=== PATIENT | female | born 1940 ===

== ENCOUNTER 2017-02-11 13:17 | Inpatient (IN) | payer MEDICARE ==
[2017-02-11] MEDS ORDERED: Albuterol-Ipratrop 3 mg / 0.5 (3 ml) UD IH STA (14:10)
[2017-02-11] MEDS ORDERED: Oxycodone/Acetaminophen 5/325 mg Tab PO STA (14:16)
[2017-02-11] MEDS ORDERED: Oxycodone/Acetaminophen 5/325 mg Tab ONE (14:26)
--- NOTE | 2017-02-11 14:35 | RAD ---
HISTORY: SOB, marked congestion rt mid lung COMPARISON: Chest x-ray performed 02/23/15 TECHNIQUE: Chest PA and lateral FINDINGS: LUNGS: Mild pulmonary venous congestion. Small left pleural effusion. Left basilar atelectasis or infiltrate. No definite pneumothorax. Please note that chest x-ray has limited sensitivity for the detection of pulmonary masses. CARDIOVASCULAR: Cardiomegaly. OSSEOUS STRUCTURES: Degenerative changes of the spine. VISUALIZED UPPER ABDOMEN: Mild elevation of the left hemidiaphragm. OTHER FINDINGS: None. IMPRESSION: Cardiomegaly. Atherosclerotic calcifications of the aorta. Mild pulmonary venous congestion. Small left pleural effusion and associated atelectasis/infiltrate.
[2017-02-11 14:42] LABS: BASO % 0.4 % (0.0-2.0); EOS # 0.3 K/uL (0.0-0.7); HEMATOCRIT 35.9 % (34.0-47.0); LYMPH # 1.5 K/uL (1.0-4.3); LYMPH % 16.6 % (20.0-40.0); MEAN CORPUSCULAR HEMOGLOBIN 28.7 pg (27.0-31.0); MEAN CORPUSCULAR HGB CONC 32.3 g/dL (33.0-37.0); MEAN PLATELET VOLUME 7.7 fL (7.2-11.7); MONO # 0.5 K/uL (0.0-0.8); MONO % 5.5 % (0.0-10.0); RED CELL DISTRIBUTION WIDTH 14.3 % (11.5-14.5); WHITE BLOOD COUNT 8.9 K/uL (4.8-10.8)
[2017-02-11 15:00] LABS: CHLORIDE 101 mmol/L (98-107); POTASSIUM 4.4 mmol/L (3.6-5.2); SODIUM 140 mmol/L (132-148)
[2017-02-11 15:02] LABS: ALKALINE PHOSPHATASE 97 U/L (38-126); AST/SGOT 21 U/L (14-36); BILIRUBIN,TOTAL 0.3 mg/dL (0.2-1.3); CARBON DIOXIDE 26 mmol/L (22-30); GFR AFRICAN-AMERICAN 59; TOTAL PROTEIN 7.6 g/dL (6.3-8.3)
[2017-02-11 15:03] LABS: ALT/SGPT 18 U/L (9-52); BLOOD UREA NITROGEN 27 mg/dL (7-17); CALCIUM 9.2 mg/dl (8.6-10.4); GLUCOSE,RANDOM 99 mg/dL (65-105)
[2017-02-11] MEDS ORDERED: Albuterol-Ipratrop 3 mg / 0.5 (3 ml) UD ONE (15:17)
[2017-02-11] MEDS ORDERED: cefOXitin IV 1 gm in Dextrose 50 ML IV ONE (15:50)
[2017-02-11] MEDS ORDERED: Azithromycin 500mg/250ML NS 250 ML IV SCH (16:00)
--- NOTE | 2017-02-11 16:16 | C.PDOC ---
History Of Present Illness 76-year-old female, comes in complaining that 3-4 weeks ago, patient developed pain in right upper mid-back, that is worse w/ movement and unrelieved by Tylenol. Associated increased shortness of breath and productive cough w/ green sputum, despite using Albuterol. Denies fevers, chills, vomiting or diarrhea. Time Seen by Provider: 02/11/17 13:51 Chief Complaint (Nursing): Shortness Of Breath History Per: Patient History/Exam Limitations: no limitations Past Medical History Reviewed: Historical Data, Nursing Documentation, Vital Signs Vital Signs: Last Vital Signs Temp 97.5 F L 02/11/17 13:24 Pulse 74 02/11/17 13:24 Resp 16 02/11/17 13:53 BP 124/71 02/11/17 13:24 Pulse Ox 98 02/11/17 16:22 - Medical History PMH: Arthritis, Asthma, Diabetes, HTN Family History: States: Unknown Family Hx - Social History Hx Tobacco Use: No Hx Alcohol Use: No - Immunization History Hx Tetanus Toxoid Vaccination: Yes Hx Influenza Vaccination: No Hx Pneumococcal Vaccination: Yes Review Of Systems Except As Marked, All Systems Reviewed And Found Negative. Constitutional: Negative for: Fever, Chills Respiratory: Positive for: Cough, Shortness of Breath, Sputum Gastrointestinal: Negative for: Nausea, Vomiting, Abdominal Pain, Diarrhea Musculoskeletal: Positive for: Back Pain Skin: Negative for: Rash Neurological: Negative for: Weakness, Numbness, Headache, Dizziness Physical Exam - Physical Exam Appears: Non-toxic, No Acute Distress Skin: Warm, Dry, No Rash Oral Mucosa: Moist Lips: Normal Appearing Neck: Normal ROM Cardiovascular: Rhythm Regular Respiratory: Decreased Breath Sounds, Rales, Rhonchi (LEFT) Gastrointestinal/Abdominal: Soft, No Tenderness Back: Other (parathoracic tenderness t2-t10, right.) Extremity: Normal ROM, No Pedal Edema Neurological/Psych: Oriented x3, Normal Speech, Normal Cognition ED Course And Treatment - Laboratory Results Result Diagrams: 02/11/17 14:37 02/11/17 14:37 ECG: Interpreted By Me ECG Rhythm: Sinus Rhythm ECG Interpretation: No Acute Changes Interpretation Of ECG: Q in 3, poor r wave prog, Rate From EC O2 Sat by Pulse Oximetry: 98 - Radiology CXR: Interpreted by Me, Viewed By Me CXR Interpretation: Yes: Other (small pleurel effusion on left with inflitrate above) Medical Decision Making Medical Decision Making: Pt treated with neb and percocet Pain improved, breathing not much still with productive co0ugh CXR with left plural effusion and ?inflitrte Cultures done and abx ordered In view of the effusion and asthma pt will need admission for IV abx, possible tap etc Discussed with dr Ochoa who agrees with plna Disposition - Disposition Disposition: HOSPITALIZED Disposition Time: 16:15 Condition: FAIR - Clinical Impression Clinical Impression: Dyspnea, Pneumonia, Pleural effusion - Scribe Statement The provider has reviewed the documentation as recorded by the Scribe Aubrey Delvalle All medical record entries made by the Scribe were at my direction and personally dictated by me. I have reviewed the chart and agree that the record accurately reflects my personal performance of the history, physical exam, medical decision making, and the department course for this patient. I have also personally directed, reviewed, and agree with the discharge instructions and disposition. Decision To Admit - Pt Status Changed To: Hospital Disposition Of: Inpatient - Admit Certification Admit to Inpatient:: After my assessment, the patient will require hospitalization for at least two midnights. This is because of the severity of symptoms shown, intensity of services needed, and/or the medical risk in this patient being treated as an outpatient. - InPatient: Physician Admission Certification: I certify that this patient requires 2 or more midnights of care for the following reason:: see note - . Bed Request Type: Regular Admitting Physician: Kalin Hoyos Patient Diagnosis: Dyspnea, Pneumonia, Pleural effusion
[2017-02-11] MEDS ORDERED: cefOXitin IV 1 gm in Dextrose 50 ML IVPB ONE (16:27)
[2017-02-11] MEDS ORDERED: Piperacillin/Tazobact 3.375 gm 0 ML IVPB ONE (16:28)
[2017-02-11] MEDS ORDERED: Azithromycin 500mg/250ML NS 250 ML IVPB ONE (16:57)
--- NOTE | 2017-02-11 17:15 | CT ---
CT scan of the chest dated 02/11/2017. Findings: Effusion. . Contiguous helical/transaxial sections of the chest performed in standard fashion from the lung apices through the upper abdomen without intravenous contrast material. Additional 2 dimensional sagittal and coronal reformats provided. Comparison made with prior chest radiograph obtained earlier same day. Radiation. Total DLP = 768.85 mGy-cm. Heart is mildly enlarged. No significant pericardial effusion. The ascending thoracic aorta measures approximately 3.1 cm and the descending thoracic aorta measures a per 2.6 cm. Common origin of the left common carotid and right brachiocephalic arteries. Pulmonary trunk measures approximately 3.18 cm; rule out underlying mild pulmonary arterial hypertension. . Few small nonspecific mediastinal lymph nodes are present 1 of which in the sub carinal regions calcified. Findings suggest prior exposure to a granulomatous disease process. Evaluation for hilar adenopathy is somewhat limited due to lack of circulating intravenous contrast. Central airways are midline and patent. No endobronchial lesions. Small hiatal hernia. Thyroid gland is unremarkable. Visualized portions of the liver exhibits normal attenuation pattern without mass collection or calcifications. Spleen is unremarkable. Pancreas is incompletely visualized though that portion that is seen appears slightly atrophic and fatty replaced. No obvious pancreatic mass or collection identified on the images provided. Intraluminal gallbladder calculi noted. No adrenal lesions. Kidneys are incompletely seen. Multilevel degenerative spondylosis of the thoracic spine. No acute compression fractures. Evaluation of the lung parenchyma reveals bronchiectasis in the left lung base with atelectasis and scarring. . There is a tiny calcified granuloma right lung base and superior segment right upper lobe. . There are multiple varying sized nodular opacities seen right upper lobe/ apical region. Chronic atelectasis/scarring right medial lung base noted as well. Lung base of which are nonspecific though likely postinflammatory. . Mild bronchiectasis and scarring changes also noted in the right middle lobe. No evidence of effusion or pneumothorax. Impression: Bronchiectasis the scarring/atelectasis left lung base. Small calcified granulomas right lower lung field. Multiple varying sized nodular opacities right upper lobe and apical region. Chronic atelectasis/scarring right lung base with bronchiectasis/scarring right middle few nonspecific mediastinal lymph nodes 1 of which is calcified consistent with prior exposure to granulomatous disease process. Clinical correlation suggested. No evidence of effusion for pneumothorax Cholelithiasis. Mild cardiomegaly. Common origin the right brachiocephalic and left common carotid arteries.
[2017-02-11] MEDS ORDERED: Albuterol-Ipratrop 3 mg / 0.5 (3 ml) UD INH PRN (17:52)
[2017-02-11] MEDS ORDERED: Capsaicin 0.025% Cream (60 gm) TOP PRN (17:55)
--- NOTE | 2017-02-11 18:12 | CP.PCM.HP ---
<Laurel Aburto - Last Filed: 02/11/17 18:07> History of Present Illness - History of Present Illness History of Present Illness: Internal medicine H & P for Dr. Yani Aburto, PGY-1 Pt S & E at bedside. 76F [place] speaking only w/PMH sig for asthma, DM, HTN admitted for SOB x 1 and back pain x 3 wks. Pt reports that she has been experiencing Right mid back pain x 3 weeks, constant but variable intensity, radiates up and down back , sharp in nature, tried Ibuprofen and Tylenol without relief. No inciting or aggravating factors identified. Pt reports that yesterday, she bent over to tie her shoe, when she got up she "felt terrible", "felt that she was going to have an asthma attack" and was SOB. Admits to cough, congestion, mucus production, sore throat, incontinence, constipation, numbness or tingling of lower extremities R> L, and foul smelling urine. Denies N/V/F/C, Chest pain, abdominal pain, headache, palpitations, dysuria, hematuria, hematochezia, diarrhea, dizziness. PMH, asthma, HTN, DM PSH: Denies All: Denies SH: Denies tobacco, ETOH, or illicit drug use or history PMD: [facility] Pharmacy: [facility] on in [place] Present on Admission - Present on Admission Any Indicators Present on Admission: No History of DVT/PE: No History of Uncontrolled Diabetes: No Urinary Catheter: No Decubitus Ulcer Present: No Review of Systems - Review of Systems All systems: reviewed and no additional remarkable complaints except - Constitutional Constitutional: absent: Chills, Fever, Headache, Weakness - EENT Eyes: absent: Change in Vision Ears: absent: Dizziness Nose/Mouth/Throat: Nasal Congestion, Sore Throat - Cardiovascular Cardiovascular: absent: Chest Pain, Dyspnea on Exertion, Palpitations - Respiratory Respiratory: Cough, Chest Congestion, Excessive Mucous Production. absent: Pain with Coughing - Gastrointestinal Gastrointestinal: Constipation (chronic). absent: Abdominal Pain, Diarrhea, Hematemesis, Hematochezia, Nausea, Vomiting - Genitourinary Genitourinary: absent: Change in Urinary Stream, Dysuria, Hematuria - Musculoskeletal Musculoskeletal: Back Pain, Numbness, Tingling - Neurological Neurological: absent: Dizziness, Headaches, Loss of Vision, Weakness Past Patient History - Past Medical History & Family History Past Medical History?: Yes - Past Social History Smoking Status: Never Smoked - CARDIAC Hx Hypertension: Yes - PULMONARY Hx Asthma: Yes - NEUROLOGICAL Hx Neurological Disorder: Yes - HEENT Hx HEENT Problems: No - RENAL Hx Chronic Kidney Disease: No - ENDOCRINE/METABOLIC Hx Endocrine Disorders: Yes Hx Diabetes Mellitus Type 2: Yes - HEMATOLOGICAL/ONCOLOGICAL Hx Blood Disorders: No - INTEGUMENTARY Hx Dermatological Problems: No - MUSCULOSKELETAL/RHEUMATOLOGICAL Hx Arthritis: Yes - GASTROINTESTINAL Hx Gastrointestinal Disorders: No - GENITOURINARY/GYNECOLOGICAL Hx Genitourinary Disorders: No - SURGICAL HISTORY Hx Surgeries: Yes (ABDOMINAL LIPOSUCTION) Other/Comment: pt. states small surgeries when she was young she said nothing worth mentioning/ does not remember, no problems with anesthesia - ANESTHESIA Hx Anesthesia: Yes Hx Anesthesia Reactions: No Hx Malignant Hyperthermia: No Meds Allergies/Adverse Reactions: Allergies Allergy/AdvReac Type Severity Reaction Status Date / Time No Known Allergies Allergy Verified 02/23/15 19:57 Physical Exam - Constitutional Appears: Non-toxic, No Acute Distress - Head Exam Head Exam: ATRAUMATIC, NORMAL INSPECTION, NORMOCEPHALIC - Eye Exam Eye Exam: EOMI, Normal appearance, PERRL Pupil Exam: NORMAL ACCOMODATION, PERRL - ENT Exam ENT Exam: Mucous Membranes Moist, Normal Exam - Neck Exam Neck exam: Positive for: Full Rom, Normal Inspection - Respiratory Exam Respiratory Exam: Clear to Auscultation Bilateral, NORMAL BREATHING PATTERN. absent: Accessory Muscle Use, Rales, Rhonchi, Wheezes, Respiratory Distress - Cardiovascular Exam Cardiovascular Exam: REGULAR RHYTHM, +S1, +S2 - GI/Abdominal Exam GI & Abdominal Exam: Normal Bowel Sounds, Soft. absent: Distended (obese), Tenderness - Extremities Exam Extremities exam: Positive for: normal capillary refill, normal inspection, pedal edema (trace B/L). Negative for: tenderness - Back Exam Back exam: muscle spasm (Right mid thoracic region), NORMAL INSPECTION, tenderness (Right mid thoracic region) - Neurological Exam Neurological exam: Alert, CN II-XII Intact, Oriented x3 - Psychiatric Exam Psychiatric exam: Normal Affect, Normal Mood - Skin Skin Exam: Dry, Intact, Normal Color, Warm Results - Vital Signs Recent Vital Signs: Last Vital Signs Temp 97.9 F 02/11/17 18:00 Pulse 67 02/11/17 18:00 Resp 20 02/11/17 18:00 BP 139/57 L 02/11/17 18:00 Pulse Ox 99 02/11/17 18:00 - Labs Result Diagrams: 02/11/17 14:37 02/11/17 14:37 Assessment & Plan - Assessment and Plan (Free Text) Assessment: Possible Pneumonia No leukocytosis Afebrile CT chest w/findings of Bronchiectasis the scarring/atelectasis left lung base. Small calcified granulomas right lower lung field. Multiple varying sized nodular opacities right upper lobe and apical region. Chronic atelectasis/ scarring right lung base with bronchiectasis/scarring right middle few nonspecific mediastinal lymph nodes 1 of which is calcified consistent with prior exposure to granulomatous disease process. Clinical correlation suggested. No evidence of effusion for pneumothorax Cholelithiasis. Mild cardiomegaly. Common origin the right brachiocephalic and left common carotid arteries. Azithromycin 500mg Q24H Rocephin 1gm Q12H FU Mycoplasma FU [place] FU Blood cxr FU sputum cxr FU Flu Trops neg x 1 Asthma Cont home med: Symbicort or equivalent, Demadex Duonebs PRN O2 PRN HTN Cont home med: Losartan-HCTZ DM/Morbid obesity BMI 43.1 ISS FU A1c Diabetic diet Accuchecks Dietary referral for diabetic education and morbid obesity Right sided back pain Capsaicin cream to area Heating pad to area Motrin PRN FU U/A Constipation Colace GI/DVT ppx SCDs Lovenox Ambulate Pepcid Dispo Admit to med surg VS Q4H OOBTC Ambulate DW attending - Date & Time Date: 02/11/17 Time: 17:00 <Kalin Hoyos - Last Filed: 02/11/17 18:22> Results - Vital Signs Recent Vital Signs: Last Vital Signs Temp 97.9 F 02/11/17 18:00 Pulse 67 02/11/17 18:00 Resp 20 02/11/17 18:00 BP 139/57 L 02/11/17 18:00 Pulse Ox 99 02/11/17 18:00 - Labs Result Diagrams: 02/11/17 14:37 02/11/17 14:37 Attending/Attestation - Attestation I have personally seen and examined this patient.: Yes I have fully participated in the care of the patient.: Yes I have reviewed all pertinent clinical information: Yes Notes (Text): 02/11/17 18:19 Medical attending: Patient was seen and examined by me, agrees the above note by nuclear medical technologist. The patient when seen in the emergency room was not under any acute distress. Reviewed the lab work as well as reviewed the chest x-ray. I asked the ER for CT scan without contrast and had already been done by the time I got there however it was pending official read. It now reports that there is probably calcified old granulomas. As well as some nonspecific nodules long particularly in the apices. Because the area of the pain was the right upper back, initially we thought this could represent some type of pneumonia. We placed the patient on IV into biotics, check cultures both blood and sputum and atypical cultures. We will have to follow these There is a history of asthma as well, regarding continue with the inhaled long- acting steroid-induced/beta agonists. As well as DUO nebulizers. thank you Kalin Hoyos
[2017-02-11] MEDS: MethylPREDNISolone 40 mg Vial IVP SCH (19:06)
[2017-02-11] MEDS ORDERED: Fluticasone-Salmeterol 500-50mcg Diskus INH SCH (20:00)
[2017-02-11 21:03] LABS: URINE BACTERIA RARE (<OCC); URINE BILIRUBIN NEGATIVE (NEGATIVE); URINE BLOOD NEGATIVE (NEGATIVE); URINE COLOR Straw (YELLOW); URINE GLUCOSE (UA) NORMAL (Normal); URINE KETONE NEGATIVE (NEGATIVE); URINE LEUKOCYTE ESTERASE NEG Leu/uL (Negative); URINE PROTEIN NEGATIVE (NEGATIVE); URINE UROBILINOGEN NORMAL mg/dL (0.2-1.0); WBC URINE 1 /hpf (0-5)
[2017-02-11] MEDS ORDERED: (Novolog) Insulin Aspart, Recombinant 100 u/ml 10 ml vial ONE (21:03)
[2017-02-11] MEDS: (Novolog) Insulin Aspart, Recombinant 100 u/ml 10 ml vial SC SCH (21:20)
[2017-02-12 00:35] VITALS: BP 125/69; PULSE 75; RESP 20; TEMP 97.7; O2SAT 96
[2017-02-12] MEDS ORDERED: cefTRIAXone IV 1 gm in Dextros 50 ML IVPB SCH (06:00)
[2017-02-12] MEDS: (Novolog) Insulin Aspart, Recombinant 100 u/ml 10 ml vial SC SCH ×2 (07:50→12:04)
[2017-02-12] MEDS: MethylPREDNISolone 40 mg Vial IVP SCH (09:44)
[2017-02-12 09:58] LABS: BASO % 0.2 % (0.0-2.0); EOS % 0.1 % (0.0-4.0); HEMATOCRIT 35.6 % (34.0-47.0); LYMPH # 0.5 K/uL (1.0-4.3); LYMPH % 4.5 % (20.0-40.0); MEAN CELL VOLUME 89.3 fL (81.0-99.0); MEAN CORPUSCULAR HEMOGLOBIN 28.5 pg (27.0-31.0); MEAN CORPUSCULAR HGB CONC 31.9 g/dL (33.0-37.0); MEAN PLATELET VOLUME 8.2 fL (7.2-11.7); MONO # 0.1 K/uL (0.0-0.8); MONO % 0.8 % (0.0-10.0); PLATELET COUNT 249 K/uL (130-400); RED CELL DISTRIBUTION WIDTH 14.1 % (11.5-14.5); WHITE BLOOD COUNT 11.2 K/uL (4.8-10.8)
[2017-02-12 10:13] LABS: POTASSIUM 4.2 mmol/L (3.6-5.2)
[2017-02-12 10:16] LABS: BILIRUBIN,TOTAL 0.2 mg/dL (0.2-1.3); CALCIUM 9.1 mg/dl (8.6-10.4); TOTAL PROTEIN 7.8 g/dL (6.3-8.3)
[2017-02-12 11:05] LABS: NEUTROPHIL 90 % (50-75); TOTAL CELLS COUNTED 100
--- NOTE | 2017-02-12 13:27 | CP.PCM.DIS ---
<Laurel Aburto - Last Filed: 02/12/17 13:59> Provider - Provider Date of Admission: 02/11/17 16:14 Attending physician: Kalin Hoyos DO Primary care physician: Familia Alexander Consults: None Time Spent in preparation of Discharge (in minutes): 60 Hospital Course - Lab Results Lab Results: Most Recent Lab Values WBC 11.2 K/uL (4.8-10.8) H 02/12/17 09:47 RBC 3.98 Mil/uL (3.80-5.20) 02/12/17 09:47 Hgb 11.3 g/dL (11.0-16.0) 02/12/17 09:47 Hct 35.6 % (34.0-47.0) 02/12/17 09:47 MCV 89.3 fL (81.0-99.0) 02/12/17 09:47 MCH 28.5 pg (27.0-31.0) 02/12/17 09:47 MCHC 31.9 g/dL (33.0-37.0) L 02/12/17 09:47 RDW 14.1 % (11.5-14.5) 02/12/17 09:47 Plt Count 249 K/uL (130-400) 02/12/17 09:47 MPV 8.2 fL (7.2-11.7) 02/12/17 09:47 Neut % (Auto) 94.4 % (50.0-75.0) H 02/12/17 09:47 Lymph % (Auto) 4.5 % (20.0-40.0) L 02/12/17 09:47 Smyth % (Auto) 0.8 % (0.0-10.0) 02/12/17 09:47 Eos % (Auto) 0.1 % (0.0-4.0) 02/12/17 09:47 Baso % (Auto) 0.2 % (0.0-2.0) 02/12/17 09:47 Neut # 10.6 K/uL (1.8-7.0) H 02/12/17 09:47 Lymph # 0.5 K/uL (1.0-4.3) L 02/12/17 09:47 Smyth # 0.1 K/uL (0.0-0.8) 02/12/17 09:47 Eos # 0.0 K/uL (0.0-0.7) 02/12/17 09:47 Baso # 0.0 K/uL (0.0-0.2) 02/12/17 09:47 Neutrophils % (Manual) 90 % (50-75) H 02/12/17 09:47 Band Neutrophils % 3 % (0-2) H 02/12/17 09:47 Lymphocytes % (Manual) 6 % (20-40) L 02/12/17 09:47 Monocytes % (Manual) 1 % (0-10) 02/12/17 09:47 Platelet Estimate Normal (NORMAL) 02/12/17 09:47 RBC Morphology Normal 02/12/17 09:47 Sodium 138 mmol/L (132-148) 02/12/17 09:47 Potassium 4.2 mmol/L (3.6-5.2) 02/12/17 09:47 Chloride 94 mmol/L (98-107) L 02/12/17 09:47 Carbon Dioxide 27 mmol/L (22-30) 02/12/17 09:47 Anion Gap 21 (10-20) H 02/12/17 09:47 BUN 34 mg/dL (7-17) H 02/12/17 09:47 Creatinine 1.4 MG/DL (0.7-1.2) H 02/12/17 09:47 Est GFR ( Amer) 44 02/12/17 09:47 Est GFR (Non-Af Amer) 37 02/12/17 09:47 POC Glucose (mg/dL) 180 mg/dL (65-110) H 02/12/17 11:41 Random Glucose 315 mg/dL (65-105) H 02/12/17 09:47 Hemoglobin A1c 7.3 % (4.2-6.5) H 02/12/17 09:47 Calcium 9.1 mg/dl (8.6-10.4) 02/12/17 09:47 Total Bilirubin 0.2 mg/dL (0.2-1.3) 02/12/17 09:47 AST 20 U/L (14-36) 02/12/17 09:47 ALT 13 U/L (9-52) 02/12/17 09:47 Alkaline Phosphatase 87 U/L (38-126) 02/12/17 09:47 Troponin I < 0.0120 ng/mL (0.00-0.120) 02/11/17 14:37 Total Protein 7.8 g/dL (6.3-8.3) 02/12/17 09:47 Albumin 4.0 g/dL (3.5-5.0) 02/12/17 09:47 Globulin 3.8 gm/dL (2.2-3.9) 02/12/17 09:47 Albumin/Globulin Ratio 1.0 (1.0-2.1) 02/12/17 09:47 Urine Color Straw (YELLOW) 02/11/17 20:52 Urine Clarity Clear (Clear) 02/11/17 20:52 Urine pH 5.0 (5.0-8.0) 02/11/17 20:52 Ur Specific [place] 1.015 (1.003-1.030) 02/11/17 20:52 Urine Protein Negative mg/dL (NEGATIVE) 02/11/17 20:52 Urine Glucose (UA) Normal mg/dL (Normal) 02/11/17 20:52 Urine Ketones Negative mg/dL (NEGATIVE) 02/11/17 20:52 Urine Blood Negative (NEGATIVE) 02/11/17 20:52 Urine Nitrate Negative (NEGATIVE) 02/11/17 20:52 Urine Bilirubin Negative (NEGATIVE) 02/11/17 20:52 Urine Urobilinogen Normal mg/dL (0.2-1.0) 02/11/17 20:52 Ur Leukocyte Esterase Neg Apple/uL (Negative) 02/11/17 20:52 Urine WBC (Auto) 1 /hpf (0-5) 02/11/17 20:52 Ur Squamous Epith Cells < 1 /hpf (0-5) 02/11/17 20:52 Urine Bacteria Rare (<OCC) 02/11/17 20:52 Influenza Typ A,B (EIA) Negative for flu a/b (NEGATIVE) 02/11/17 18:15 Ur L.pneumophila Ag Negative (NEGATIVE) 02/11/17 21:24 - Hospital Course Hospital Course: 76F [place]i speaking only w/PMH sig for asthma, DM, HTN admitted for SOB x 1 and back pain x 3 wks. Pt reports that she has been experiencing Right mid back pain x 3 weeks, constant but variable intensity, radiates up and down back , sharp in nature, tried Ibuprofen and Tylenol without relief. No inciting or aggravating factors identified. Pt reports that yesterday, she bent over to tie her shoe, when she got up she "felt terrible", "felt that she was going to have an asthma attack" and was SOB. Admits to cough, congestion, mucus production, sore throat, incontinence, constipation, numbness or tingling of lower extremities R> L, and foul smelling urine. Denies N/V/F/C, Chest pain, abdominal pain, headache, palpitations, dysuria, hematuria, hematochezia, diarrhea, dizziness. Pt treated with antibiotics for pneumonia. Respiratory status optimized with medications. Evaluated for pneumonia - CT scan w/findings of bronchiectasis the scarring/atelectasis left lung base. Small calcified granulomas right lower lung field. Multiple varying sized nodular opacities right upper lobe and apical region. Chronic atelectasis/scarring right lung base with bronchiectasis /scarring right middle few nonspecific mediastinal lymph nodes 1 of which is calcified consistent with prior exposure to granulomatous disease process. Clinical correlation suggested. No evidence of effusion for pneumothorax. Cholelithiasis. Mild cardiomegaly. Common origin the right brachiocephalic and left common carotid arteries. Back spasm was treated with NSAID with improvement of pain. Patient's status improved, pt stable and ready for discharge. Instructed to follow up with primary care doctor within 1 week after discharge. Was placed on steroid taper, Z-lexx and Singulair for asthma. Diagnoses: asthma exacerbation, Diabetes, HTN, morbid obesity Please see EMR for full record of hospitalization. - Date & Time of H&P Date of H&P: 02/12/17 Time of H&P: 18:07 Discharge Exam - Head Exam Head Exam: ATRAUMATIC, NORMAL INSPECTION, NORMOCEPHALIC - Eye Exam Eye Exam: EOMI, Normal appearance, PERRL Pupil Exam: NORMAL ACCOMODATION, PERRL - ENT Exam ENT Exam: Mucous Membranes Moist, Normal Exam - Neck Exam Neck exam: Full Rom, Normal Inspection - Respiratory Exam Respiratory Exam: Clear to PA & Lateral, NORMAL BREATHING PATTERN, UNREMARKABLE. absent: Accessory Muscle Use, Chest Wall Tenderness, Decreased Breath Sounds, Rales, Rhonchi, Wheezes, Respiratory Distress, Stridor - Cardiovascular Exam Cardiovascular Exam: REGULAR RHYTHM, +S1, +S2 - GI/Abdominal Exam GI & Abdominal Exam: Normal Bowel Sounds, Soft, Unremarkable. absent: Distended (obese), Tenderness - Extremities Exam Extremities exam: full ROM, normal inspection - Back Exam Back exam: FULL ROM, NORMAL INSPECTION, tenderness (mild - over right mid thoracic region) - Neurological Exam Neurological exam: Alert, CN II-XII Intact, Normal Gait, Oriented x3 - Psychiatric Exam Psychiatric exam: Normal Affect, Normal Mood - Skin Skin Exam: Dry, Intact, Normal Color, Warm Discharge Plan - Discharge Medications Prescriptions: Montelukast [Singulair] 10 mg PO HS #30 tab Azithromycin [Z-Lexx] 250 mg PO DAILY #6 tab - Follow Up Plan Condition: STABLE Disposition: HOME/ ROUTINE Instructions: Azithromycin (By mouth), Montelukast (By mouth), COPD (Chronic Obstructive Pulmonary Disease) (DC), Pleural Effusion (DC), Community Acquired Pneumonia (DC) Additional Instructions: Patient cleared for discharge as per Dr. Hoyos. Please follow up with your primary care doctor in 1 week after hospitalization. You are being started on an asthma medication called Singulair, please take as prescribed. You are being placed on a prednisone taper, the instructions are on the bottle, please take as directed. You are also being discharged on an antibiotic called a Z-lexx, please take as prescribed. You may take Motrin or Advil for your back pain. Please return to hospital if you have a recurrence of symptoms. <Kalin Hoyos - Last Filed: 02/12/17 15:19> Provider - Provider Date of Admission: 02/11/17 16:14 Attending physician: Kalin Hoyos, DO Hospital Course - Lab Results Lab Results: Most Recent Lab Values WBC 11.2 K/uL (4.8-10.8) H 02/12/17 09:47 RBC 3.98 Mil/uL (3.80-5.20) 02/12/17 09:47 Hgb 11.3 g/dL (11.0-16.0) 02/12/17 09:47 Hct 35.6 % (34.0-47.0) 02/12/17 09:47 MCV 89.3 fL (81.0-99.0) 02/12/17 09:47 MCH 28.5 pg (27.0-31.0) 02/12/17 09:47 MCHC 31.9 g/dL (33.0-37.0) L 02/12/17 09:47 RDW 14.1 % (11.5-14.5) 02/12/17 09:47 Plt Count 249 K/uL (130-400) 02/12/17 09:47 MPV 8.2 fL (7.2-11.7) 02/12/17 09:47 Neut % (Auto) 94.4 % (50.0-75.0) H 02/12/17 09:47 Lymph % (Auto) 4.5 % (20.0-40.0) L 02/12/17 09:47 Smyth % (Auto) 0.8 % (0.0-10.0) 02/12/17 09:47 Eos % (Auto) 0.1 % (0.0-4.0) 02/12/17 09:47 Baso % (Auto) 0.2 % (0.0-2.0) 02/12/17 09:47 Neut # 10.6 K/uL (1.8-7.0) H 02/12/17 09:47 Lymph # 0.5 K/uL (1.0-4.3) L 02/12/17 09:47 Smyth # 0.1 K/uL (0.0-0.8) 02/12/17 09:47 Eos # 0.0 K/uL (0.0-0.7) 02/12/17 09:47 Baso # 0.0 K/uL (0.0-0.2) 02/12/17 09:47 Neutrophils % (Manual) 90 % (50-75) H 02/12/17 09:47 Band Neutrophils % 3 % (0-2) H 02/12/17 09:47 Lymphocytes % (Manual) 6 % (20-40) L 02/12/17 09:47 Monocytes % (Manual) 1 % (0-10) 02/12/17 09:47 Platelet Estimate Normal (NORMAL) 02/12/17 09:47 RBC Morphology Normal 02/12/17 09:47 Sodium 138 mmol/L (132-148) 02/12/17 09:47 Potassium 4.2 mmol/L (3.6-5.2) 02/12/17 09:47 Chloride 94 mmol/L (98-107) L 02/12/17 09:47 Carbon Dioxide 27 mmol/L (22-30) 02/12/17 09:47 Anion Gap 21 (10-20) H 02/12/17 09:47 BUN 34 mg/dL (7-17) H 02/12/17 09:47 Creatinine 1.4 MG/DL (0.7-1.2) H 02/12/17 09:47 Est GFR ( Amer) 44 02/12/17 09:47 Est GFR (Non-Af Amer) 37 02/12/17 09:47 POC Glucose (mg/dL) 180 mg/dL (65-110) H 02/12/17 11:41 Random Glucose 315 mg/dL (65-105) H 02/12/17 09:47 Hemoglobin A1c 7.3 % (4.2-6.5) H 02/12/17 09:47 Calcium 9.1 mg/dl (8.6-10.4) 02/12/17 09:47 Total Bilirubin 0.2 mg/dL (0.2-1.3) 02/12/17 09:47 AST 20 U/L (14-36) 02/12/17 09:47 ALT 13 U/L (9-52) 02/12/17 09:47 Alkaline Phosphatase 87 U/L (38-126) 02/12/17 09:47 Troponin I < 0.0120 ng/mL (0.00-0.120) 02/11/17 14:37 Total Protein 7.8 g/dL (6.3-8.3) 02/12/17 09:47 Albumin 4.0 g/dL (3.5-5.0) 02/12/17 09:47 Globulin 3.8 gm/dL (2.2-3.9) 02/12/17 09:47 Albumin/Globulin Ratio 1.0 (1.0-2.1) 02/12/17 09:47 Urine Color Straw (YELLOW) 02/11/17 20:52 Urine Clarity Clear (Clear) 02/11/17 20:52 Urine pH 5.0 (5.0-8.0) 02/11/17 20:52 Ur Specific [place] 1.015 (1.003-1.030) 02/11/17 20:52 Urine Protein Negative mg/dL (NEGATIVE) 02/11/17 20:52 Urine Glucose (UA) Normal mg/dL (Normal) 02/11/17 20:52 Urine Ketones Negative mg/dL (NEGATIVE) 02/11/17 20:52 Urine Blood Negative (NEGATIVE) 02/11/17 20:52 Urine Nitrate Negative (NEGATIVE) 02/11/17 20:52 Urine Bilirubin Negative (NEGATIVE) 02/11/17 20:52 Urine Urobilinogen Normal mg/dL (0.2-1.0) 02/11/17 20:52 Ur Leukocyte Esterase Neg Apple/uL (Negative) 02/11/17 20:52 Urine WBC (Auto) 1 /hpf (0-5) 02/11/17 20:52 Ur Squamous Epith Cells < 1 /hpf (0-5) 02/11/17 20:52 Urine Bacteria Rare (<OCC) 02/11/17 20:52 Influenza Typ A,B (EIA) Negative for flu a/b (NEGATIVE) 02/11/17 18:15 Ur L.pneumophila Ag Negative (NEGATIVE) 02/11/17 21:24 Attending/Attestation - Attestation I have personally seen and examined this patient.: Yes I have fully participated in the care of the patient.: Yes I have reviewed all pertinent clinical information, including history, physical exam and plan: Yes Notes (Text): 02/12/17 15:17 Medical attending: Patient was seen and examined by me, agrees the above note by chief medical physicist. On our examination we also had the patient walk around with us and she was able to stand up and ambulate with us into the hallway she did not need any assistance. She did not have chest pain when walking, she denied having palpitations when walking, and she also said that her breathing was okay when walking as well she stated that she is much better than yesterday. The patient already takes Symbicort at home, and we emphasized the patient that she needs to continue taking this. Also she's can have a prescription for Singulair, as well as a prescription for Z-Lexx area she'll also be on a slow tapering dose of prednisone as well. She had a CAT scan done, initially were worried for potential pneumonia however that does not appear to be the case. She does have old calcified granuloma. She is currently afebrile Thank you very much, Kalin Hoyos
[2017-02-12] MEDS ORDERED: Influenza Virus Vaccine 45 mcg/0.5 ml Syr IM ONE (14:30)
[2017-02-12] MEDS ORDERED: Azithromycin 500 MG in Sodium Chloride 0.9% 250 ML IVPB SCH (18:00)
--- NOTE | 2017-02-13 14:58 | CARD ---
APPROVED REPORT EKG Measurement Heart [id number] <Conclusion> Normal sinus rhythm Low voltage QRS Cannot rule out Anterior infarct, age undetermined Abnormal ECG
== END 2017-02-12 15:01 | disposition home or self-care (01) | DRG 194 ==
LOC: C.ER 13:17 → C.9E 16:14 → C.5T 21:16
PROVIDERS: ADMIT Hospitalist; ATTEND Hospitalist
DX: J18.9 Pneumonia, unspecified organism (principal); J47.0 Bronchiectasis with acute lower respiratory infection; Z68.41 Body mass index [BMI] 40.0-44.9, adult; J45.901 Unspecified asthma with (acute) exacerbation; E66.01 Morbid (severe) obesity due to excess calories; E11.9 Type 2 diabetes mellitus without complications; J98.11 Atelectasis; I51.7 Cardiomegaly; M54.9 Dorsalgia, unspecified; K59.00 Constipation, unspecified; I10 Essential (primary) hypertension

== ENCOUNTER 2017-05-21 15:19 | Inpatient (IN) | payer MEDICARE ==
[2017-05-21 15:27] VITALS: RESP 20
--- NOTE | 2017-05-21 15:37 | C.PDOC ---
History Of Present Illness 77 y/o female presents to the ED with complaints of SOB x4 days with subjective fever. Pt denies any leg swelling, chest pain, or any other complaints. PMH sig for asthma, DM, HTN Time Seen by Provider: 05/21/17 15:36 Chief Complaint (Nursing): Shortness Of Breath History Per: Patient History/Exam Limitations: no limitations Onset/Duration Of Symptoms: Days Current Symptoms Are (Timing): Still Present Current Respiratory Medications: None Severity: Moderate Associated Symptoms: Fever. denies: Chest Pain Recent travel outside of the [place]: No Past Medical History Reviewed: Historical Data, Nursing Documentation, Vital Signs Vital Signs: Last Vital Signs Temp 99.3 F 05/21/17 15:22 Pulse 101 H 05/21/17 16:47 Resp 20 05/21/17 16:47 BP 120/49 L 05/21/17 16:47 Pulse Ox 95 05/21/17 16:51 - Medical History PMH: Arthritis, Asthma, Diabetes, HTN Family History: States: Unknown Family Hx - Social History Hx Tobacco Use: No Hx Alcohol Use: No Hx Substance Use: No - Immunization History Hx Tetanus Toxoid Vaccination: No Hx Influenza Vaccination: Yes Hx Pneumococcal Vaccination: No Review Of Systems Except As Marked, All Systems Reviewed And Found Negative. Constitutional: Positive for: Fever Cardiovascular: Negative for: Chest Pain, Edema Respiratory: Positive for: Shortness of Breath. Negative for: Cough Gastrointestinal: Negative for: Vomiting Physical Exam - Physical Exam Appears: Non-toxic, No Acute Distress Skin: Warm, Dry, No Rash Head: Atraumatic, Normacephalic Oral Mucosa: Moist Throat: Normal, No Erythema Neck: Normal, Normal ROM, Supple Chest: Symmetrical Cardiovascular: Rhythm Regular, No Murmur Respiratory: No Accessory Muscle Use, Rales (bases), No Rhonchi, No Wheezing, Other (tachypnea) Gastrointestinal/Abdominal: Normal Exam, Soft, No Tenderness Extremity: Normal ROM, No Pedal Edema, No Swelling Extremity: Bilateral: Atraumatic Neurological/Psych: Oriented x3, Normal Speech ED Course And Treatment - Laboratory Results Result Diagrams: 05/21/17 15:56 05/21/17 15:56 ECG: Interpreted By Me ECG Rhythm: Sinus Rhythm ECG Interpretation: Normal Rate From EC O2 Sat by Pulse Oximetry: 95 (room air) Pulse Ox Interpretation: Normal Progress - Data Reviewed Data Reviewed: Lab, Diagnostic imaging, EKG, Old records Medical Decision Making Medical Decision Making: Plan: * EKG * CXR * labs * nebulizer treatment * solumedrol Disposition Counseled Patient/Family Regarding: Studies Performed, Diagnosis - Disposition Disposition: HOSPITALIZED Disposition Time: 16:51 Condition: STABLE - POA Present On Arrival: None - Clinical Impression Clinical Impression: Pneumonia, COPD exacerbation - Scribe Statement The provider has reviewed the documentation as recorded by the Loretta Pizano Provider Attestation: All medical record entries made by the Loretta were at my direction and personally dictated by me. I have reviewed the chart and agree that the record accurately reflects my personal performance of the history, physical exam, medical decision making, and the department course for this patient. I have also personally directed, reviewed, and agree with the discharge instructions and disposition. Decision To Admit - Pt Status Changed To: Hospital Disposition Of: Inpatient - Admit Certification Admit to Inpatient:: After my assessment, the patient will require hospitalization for at least two midnights. This is because of the severity of symptoms shown, intensity of services needed, and/or the medical risk in this patient being treated as an outpatient. - InPatient: Physician Admission Certification: I certify that this patient requires 2 or more midnights of care for the following reason:: SEE NOTE - . Bed Request Type: Regular Admitting Physician: Kalin Hoyos Patient Diagnosis: Pneumonia, COPD exacerbation
[2017-05-21] MEDS ORDERED: MethylPREDNISolone 40 mg Vial IVP STA (15:50)
[2017-05-21] MEDS ORDERED: MethylPREDNISolone 40 mg Vial ONE (15:57)
[2017-05-21] MEDS ORDERED: Albuterol-Ipratrop 3 mg / 0.5 (3 ml) UD ONE (15:58)
[2017-05-21 16:00] LABS: BASO % 0.2 % (0.0-2.0); EOS % 0.1 % (0.0-4.0); HEMOGLOBIN 10.6 g/dL (11.0-16.0); LYMPH # 0.5 K/uL (1.0-4.3); MEAN CELL VOLUME 88.1 fL (81.0-99.0); MEAN CORPUSCULAR HEMOGLOBIN 27.6 pg (27.0-31.0); MEAN CORPUSCULAR HGB CONC 31.3 g/dL (33.0-37.0); MEAN PLATELET VOLUME 8.5 fL (7.2-11.7); MONO # 1.4 K/uL (0.0-0.8); MONO % 5.4 % (0.0-10.0); NEUT # 23.9 K/uL (1.8-7.0); NEUT % 92.3 % (50.0-75.0); PLATELET COUNT 189 K/uL (130-400); RBC 3.84 Mil/uL (3.80-5.20); RED CELL DISTRIBUTION WIDTH 15.1 % (11.5-14.5)
[2017-05-21] MEDS: Albuterol-Ipratrop 3 mg / 0.5 (3 ml) UD IH SCH ×3 (16:01→16:30)
[2017-05-21 16:08] LABS: WHITE BLOOD COUNT 25.9 K/uL (4.8-10.8)
[2017-05-21 16:14] LABS: ALBUMIN 3.5 g/dL (3.5-5.0)
[2017-05-21 16:17] LABS: ALB/GLOB RATIO 0.9 (1.0-2.1)
[2017-05-21 16:18] LABS: CALCIUM 9.2 mg/dl (8.6-10.4)
[2017-05-21 16:30] LABS: TROPONIN I 0.014 ng/mL (0.00-0.120)
--- NOTE | 2017-05-21 16:35 | RAD ---
PROCEDURE: CHEST RADIOGRAPH, 1 VIEW HISTORY: SOB COMPARISON: 02/11/2017 FINDINGS: LUNGS: No definite consolidation. Cannot rule out consolidation at left lung base, however, due to superimposed left pleural effusion. PLEURA: Small left pleural effusion. No evidence of right pleural effusion. No pneumothorax. CARDIOVASCULAR: Normal. OSSEOUS STRUCTURES: No significant abnormalities. VISUALIZED UPPER ABDOMEN: Normal. OTHER FINDINGS: None. IMPRESSION: Examination limited due to body habitus. Left pleural effusion. Cannot exclude left basilar infiltrate. No other abnormality identified.
[2017-05-21] MEDS ORDERED: cefTRIAXone IV 1 gm in Dextros 50 ML IV STA (16:50)
[2017-05-21] MEDS ORDERED: Azithromycin 500 MG in Sodium Chloride 0.9% 250 ML IV STA (16:50)
[2017-05-21 17:05] LABS: BANDS 4 % (0-2); LYMPHOCYTE 2 % (20-40); MONOCYTE 5 % (0-10); NEUTROPHIL 89 % (50-75); TOTAL CELLS COUNTED 100
[2017-05-21 17:07] LABS: HYPOCHROMIC SLIGHT; PLATELET ESTIMATE NORMAL (NORMAL)
[2017-05-21] MEDS ORDERED: cefTRIAXone IV 1 gm in Dextros 50 ML IVPB ONE (17:23)
[2017-05-21] MEDS ORDERED: Azithromycin 500mg/250ML NS 500 MG/250 ML BAG IVPB ONE (17:54)
--- NOTE | 2017-05-21 18:36 | CT ---
PROCEDURE: CT Chest without contrast HISTORY: shortness of breath, elevated wbc COMPARISON: None. TECHNIQUE: Contiguous axial images were obtained through the chest without intravenous contrast enhancement. Sagittal and coronal reconstructions were performed. Radiation dose (DLP): 741.28 mGy-cm. This CT exam was performed using one or more of the following dose reduction techniques: Automated exposure control, adjustment of the mA and/or kV according to patient size, and/or use of iterative reconstruction technique. FINDINGS: LUNGS: There is consolidation in the posterior segment of the right upper lobe. There are patchy opacities in the superior segment right upper lobe. Pleural-based opacity medial right lower lobe likely atelectasis. This is unchanged from prior CT examination. There are ill-defined opacities in the left lower lobe. Possible early infiltrate. There is bronchiectasis in the medial left lower lobe, unchanged. . MEDIASTINUM: Unremarkable thoracic aorta. No aneurysm. Normal sized heart. Main pulmonary artery unremarkable. No vascular congestion. There are several mildly enlarged mediastinal lymph nodes, up to 1.5 cm short axis. There are shotty subcentimeter mediastinal nodes noted as well. There is no hilar lymphadenopathy appreciated. PLEURA: No pleural fluid. No pneumothorax. BONES: No acute fracture. Mild thoracic dextroscoliosis. UPPER ABDOMEN: Grossly unremarkable. OTHER FINDINGS: None. IMPRESSION: Consolidation posterior segment right upper lobe. Patchy opacities in left lower lobe and in superior segment right upper lobe. Likely multifocal pneumonia. Followup advised. Probable focal atelectasis medial right lower lobe. No pleural effusion. Mild mediastinal lymphadenopathy. .
[2017-05-21] MEDS: Fluticasone-Salmeterol 250-50mcg Diskus INH SCH (19:16)
--- NOTE | 2017-05-21 19:45 | CP.PCM.HP ---
<Sonya SethVy - Last Filed: 05/21/17 19:30> History of Present Illness - History of Present Illness History of Present Illness: CC: shortness of breath, body aches and cough HPI: 77 year old female with past medical history of diabetes, asthma, and hypertension, presents to the ED with shortness of breath, cough, and fevers. She reports this started 4 days ago. She has a productive cough with white sputum. She has tried taking Tylenol and Advil 500mg which helped a little. Patient reports having body aches. The patients symptoms are diaphoresis, weakness, headaches (yesterday), chest pain with cough, and nausea (yesterday). Patient currently denies fevers, chills, dizziness, sore throat, palpitations, abdominal pain, hematemesis, diarrhea, constipation, dysuria, recent travel, and recent sick contacts. PMD: Dr. Alexander PMhx: Diabetes, HTN, Asthma PSx: "surgery on the lungs" at 6 years old. FamHx: denies SocHx: denies tobacco use, alcohol, and drugs; lives with her in an apartment; retired Allergies: NKDA Medications: Metformin 500mg PO HS, Tylenol 500mg PO, Symbicort 160-4.5 INH daily, Losartan/HCTZ 1 tab PO daily, Mobic 15mg PO daily; Singulair 10mg PO HS; Demadex 10mg PO Daily intensivist: Lilliana #[id number] Present on Admission - Present on Admission Any Indicators Present on Admission: No Review of Systems - Constitutional Constitutional: Fatigue, Fever, Weakness - EENT Eyes: Loss of Vision. absent: Change in Vision, Other Visual Disturbances Nose/Mouth/Throat: absent: Sore Throat, Neck Pain - Cardiovascular Cardiovascular: Chest Pain (when coughing), Dyspnea. absent: Palpitations, Pedal Edema - Respiratory Respiratory: Cough, Dyspnea, Pain with Coughing - Gastrointestinal Gastrointestinal: Bloating, Nausea. absent: Constipation, Diarrhea, Vomiting - Genitourinary Genitourinary: absent: Dysuria, Urinary Urgency - Musculoskeletal Musculoskeletal: absent: Joint Swelling, Neck Pain - Integumentary Integumentary: absent: Rash, Swelling - Neurological Neurological: Headaches, Weakness. absent: Dizziness - Endocrine Endocrine: Fatigue. absent: Palpitations Past Patient History - Past Medical History & Family History Past Medical History?: Yes - Past Social History Smoking Status: Never Smoked - CARDIAC Hx Hypertension: Yes - PULMONARY Hx Asthma: Yes - NEUROLOGICAL Hx Neurological Disorder: Yes - HEENT Hx HEENT Problems: No - RENAL Hx Chronic Kidney Disease: No - ENDOCRINE/METABOLIC Hx Endocrine Disorders: Yes Hx Diabetes Mellitus Type 2: Yes - HEMATOLOGICAL/ONCOLOGICAL Hx Blood Disorders: No - INTEGUMENTARY Hx Dermatological Problems: No - MUSCULOSKELETAL/RHEUMATOLOGICAL Hx Arthritis: Yes - GASTROINTESTINAL Hx Gastrointestinal Disorders: No - GENITOURINARY/GYNECOLOGICAL Hx Genitourinary Disorders: No - PSYCHIATRIC Hx Substance Use: No - SURGICAL HISTORY Hx Surgeries: Yes (ABDOMINAL LIPOSUCTION) - ANESTHESIA Hx Anesthesia: Yes Hx Anesthesia Reactions: No Hx Malignant Hyperthermia: No Meds Allergies/Adverse Reactions: Allergies Allergy/AdvReac Type Severity Reaction Status Date / Time No Known Allergies Allergy Verified 05/21/17 15:26 Physical Exam - Constitutional Appears: No Acute Distress - Head Exam Head Exam: NORMAL INSPECTION, NORMOCEPHALIC - Eye Exam Eye Exam: EOMI, Normal appearance - ENT Exam ENT Exam: Mucous Membranes Moist - Neck Exam Neck exam: Positive for: Full Rom, Normal Inspection - Respiratory Exam Respiratory Exam: Rhonchi, Wheezes. absent: Clear to Auscultation Bilateral, NORMAL BREATHING PATTERN - Cardiovascular Exam Cardiovascular Exam: REGULAR RHYTHM, +S1, +S2 - GI/Abdominal Exam GI & Abdominal Exam: Normal Bowel Sounds, Soft. absent: Tenderness - Extremities Exam Extremities exam: Positive for: normal inspection, pedal edema - Neurological Exam Neurological exam: Alert, Oriented x3 - Psychiatric Exam Psychiatric exam: Normal Affect, Normal Mood - Skin Skin Exam: Dry, Intact, Normal Color, Warm Results - Vital Signs Recent Vital Signs: Last Vital Signs Temp 98.5 F 05/21/17 18:43 Pulse 92 H 05/21/17 18:43 Resp 20 05/21/17 18:43 BP 120/49 L 05/21/17 16:47 Pulse Ox 94 L 05/21/17 18:43 - Labs Result Diagrams: 05/21/17 15:56 05/21/17 15:56 Assessment & Plan (1) Pneumonia Assessment and Plan: WBC: 25.9, Bands 4 Rocephin 1g IV Q12H Azithromycin 500mg IV CXR:exam limited to body habitus; left pleural effusion; cannot exclude left basilar infiltrate Chest CT:consolidation posterior segment right upper lobe; patchy opacities in left lower lobe and in superior right upper lobe; likely multifocal pneumonia; probable focal atelectasis medial right lower lobe; no pleural effusion; mild mediastinal lymphadenopathy. F/U Blood cultures F/U sputum cultures F/U procalcitonin Status: Acute (2) Dyspnea Assessment and Plan: likely secondary to pneumonia Nasal Canual 2L PRN Advair 250/50 daily CXR:exam limited to body habitus; left pleural effusion; cannot exclude left basilar infiltrate Chest CT:consolidation posterior segment right upper lobe; patchy opacities in left lower lobe and in superior right upper lobe; likely multifocal pneumonia; probable focal atelectasis medial right lower lobe; no pleural effusion; mild mediastinal lymphadenopathy. F/U EKG F/U ROMIs Status: Acute (3) HTN (hypertension) Assessment and Plan: Monitor BP Losartan 100mg PO daily Hydrochlorothiazide 12.5mg PO daily Demedex 10mg PO daily Heart Healthy Diet, 2Na Status: Acute (4) Diabetes mellitus Assessment and Plan: Monitor F/U HgbA1c Accuchecks QACHS Heart Healthy Diet, 2Na Status: Acute (5) Asthma Assessment and Plan: Nasal Canula 2L PRN Singulair 10mg PO HS Advair 250/50 [facility] daily Status: Acute (6) Prophylactic measure Assessment and Plan: Heparin 5,000 units SC Q8 SCDs Heart Healthy Diet, 2Na Pepcid 20mg PO once daily Status: Acute <Kalin Hoyos H - Last Filed: 05/22/17 08:35> Results - Vital Signs Recent Vital Signs: Last Vital Signs Temp 97.4 F L 05/22/17 00:00 Pulse 82 05/22/17 00:00 Resp 20 05/22/17 00:00 BP 112/57 L 05/22/17 00:00 Pulse Ox 96 05/22/17 00:00 - Labs Result Diagrams: 05/22/17 05:50 05/22/17 05:50 Labs: Laboratory Results - last 24 hr 05/21/17 05/21/17 05/21/17 21:24 21:44 21:44 WBC RBC Hgb Hct MCV MCH MCHC RDW Plt Count MPV Neut % (Auto) Lymph % (Auto) Bradford % (Auto) Eos % (Auto) Baso % (Auto) Neut # Lymph # Bradford # Eos # Baso # Sodium Potassium Chloride Carbon Dioxide Anion Gap BUN Creatinine Est GFR ( Amer) Est GFR (Non-Af Amer) POC Glucose (mg/dL) 306 H Random Glucose Calcium Phosphorus Magnesium Total Bilirubin AST ALT Alkaline Phosphatase Troponin I < 0.0120 Total Protein Albumin Globulin Albumin/Globulin Ratio Procalcitonin 0.83 H 05/22/17 05/22/17 05/22/17 01:45 05:50 05:50 WBC 28.2 H RBC 3.65 L Hgb 10.2 L Hct 32.5 L MCV 89.2 MCH 28.1 MCHC 31.5 L RDW 15.4 H Plt Count 192 MPV 8.9 Neut % (Auto) 97.2 H Lymph % (Auto) 1.4 L Bradford % (Auto) 1.3 Eos % (Auto) 0.0 Baso % (Auto) 0.1 Neut # 27.4 H Lymph # 0.4 L Bradford # 0.4 Eos # 0.0 Baso # 0.0 Sodium 130 L Potassium 3.9 Chloride 101 Carbon Dioxide 22 Anion Gap 11 BUN 37 H Creatinine 1.6 H Est GFR ( Amer) 38 Est GFR (Non-Af Amer) 31 POC Glucose (mg/dL) 441 H* Random Glucose 351 H Calcium 8.7 Phosphorus 3.4 Magnesium 2.2 Total Bilirubin 0.4 AST 18 ALT 26 Alkaline Phosphatase 117 Troponin I Total Protein 7.4 Albumin 3.3 L Globulin 4.1 H Albumin/Globulin Ratio 0.8 L Procalcitonin 05/22/17 05/22/17 05:50 07:23 WBC RBC Hgb Hct MCV MCH MCHC RDW Plt Count MPV Neut % (Auto) Lymph % (Auto) Bradford % (Auto) Eos % (Auto) Baso % (Auto) Neut # Lymph # Bradford # Eos # Baso # Sodium Potassium Chloride Carbon Dioxide Anion Gap BUN Creatinine Est GFR ( Amer) Est GFR (Non-Af Amer) POC Glucose (mg/dL) 313 H Random Glucose Calcium Phosphorus Magnesium Total Bilirubin AST ALT Alkaline Phosphatase Troponin I < 0.0120 Total Protein Albumin Globulin Albumin/Globulin Ratio Procalcitonin Attending/Attestation - Attestation I have personally seen and examined this patient.: Yes I have fully participated in the care of the patient.: Yes I have reviewed all pertinent clinical information: Yes Notes (Text): Medical attending: Patient was seen and examined by me, agrees the above note by program medical director. We ordered a CAT scan of the lung only because of the concerning findings of that one side, she also has a large white blood cell count as well. Before I left the emergency room, I did review the CAT scan and were pending a final read at this time however it does look like she has pneumonia on both sides the right greater than the left. I compared this to an older CAT scan which did not have these lesions. Sodium this time will check blood cultures, sputum cultures, and also give IV 80 biotics. She does have a large white blood cell count there is also left shift. Will check a pro-calcitonin as well. Thank you very much, Kalin Hoyos
[2017-05-21] MEDS: Azithromycin 500mg/250ML NS 500 MG/250 ML BAG IVPB SCH (21:50)
[2017-05-21] MEDS: (Novolin R) Insulin Human Regular 100 units/ml vial SC SCH (21:56)
[2017-05-22] MEDS ORDERED: (Novolin R) Insulin Human Regular 100 units/ml vial SC ONE (01:51)
[2017-05-22 05:53] LABS: BASO % 0.1 % (0.0-2.0); HEMOGLOBIN 10.2 g/dL (11.0-16.0); LYMPH # 0.4 K/uL (1.0-4.3); LYMPH % 1.4 % (20.0-40.0); MEAN CELL VOLUME 89.2 fL (81.0-99.0); MEAN CORPUSCULAR HEMOGLOBIN 28.1 pg (27.0-31.0); MEAN CORPUSCULAR HGB CONC 31.5 g/dL (33.0-37.0); MEAN PLATELET VOLUME 8.9 fL (7.2-11.7); MONO # 0.4 K/uL (0.0-0.8); MONO % 1.3 % (0.0-10.0); NEUT # 27.4 K/uL (1.8-7.0); NEUT % 97.2 % (50.0-75.0); PLATELET COUNT 192 K/uL (130-400); RBC 3.65 Mil/uL (3.80-5.20); RED CELL DISTRIBUTION WIDTH 15.4 % (11.5-14.5); WHITE BLOOD COUNT 28.2 K/uL (4.8-10.8)
[2017-05-22 06:05] LABS: ALBUMIN 3.3 g/dL (3.5-5.0)
[2017-05-22 06:08] LABS: ALB/GLOB RATIO 0.8 (1.0-2.1)
[2017-05-22 06:09] LABS: CALCIUM 8.7 mg/dl (8.6-10.4); MAGNESIUM 2.2 mg/dL (1.6-2.3)
[2017-05-22] MEDS: Fluticasone-Salmeterol 250-50mcg Diskus INH SCH ×2 (08:15→20:10)
[2017-05-22] MEDS: (Novolin R) Insulin Human Regular 100 units/ml vial SC SCH ×3 (08:30→22:30)
[2017-05-22 08:33] LABS: BANDS 2 % (0-2); LYMPHOCYTE 2 % (20-40); MONOCYTE 2 % (0-10); NEUTROPHIL 94 % (50-75); TOTAL CELLS COUNTED 100
[2017-05-22 08:34] LABS: ANISOCYTOSIS SLIGHT; HYPOCHROMIC SLIGHT; PLATELET ESTIMATE NORMAL (NORMAL)
[2017-05-22] MEDS: Azithromycin 500mg/250ML NS 500 MG/250 ML BAG IVPB SCH (21:07)
[2017-05-23 07:26] LABS: BASO % 0.1 % (0.0-2.0); HEMOGLOBIN 9.7 g/dL (11.0-16.0); LYMPH # 1.2 K/uL (1.0-4.3); LYMPH % 4.8 % (20.0-40.0); MEAN CELL VOLUME 89.2 fL (81.0-99.0); MEAN CORPUSCULAR HEMOGLOBIN 28.1 pg (27.0-31.0); MEAN CORPUSCULAR HGB CONC 31.6 g/dL (33.0-37.0); MEAN PLATELET VOLUME 8.9 fL (7.2-11.7); MONO # 0.9 K/uL (0.0-0.8); MONO % 3.7 % (0.0-10.0); NEUT # 22.2 K/uL (1.8-7.0); NEUT % 91.4 % (50.0-75.0); NRBC % 0.1 % (0.0-2.0); PLATELET COUNT 207 K/uL (130-400); RBC 3.45 Mil/uL (3.80-5.20); RED CELL DISTRIBUTION WIDTH 14.9 % (11.5-14.5); WHITE BLOOD COUNT 24.3 K/uL (4.8-10.8)
[2017-05-23] MEDS: (Novolin R) Insulin Human Regular 100 units/ml vial SC SCH ×4 (07:43→22:00)
[2017-05-23] MEDS: Fluticasone-Salmeterol 250-50mcg Diskus INH SCH ×2 (08:00→20:10)
[2017-05-23 08:34] LABS: ALBUMIN 3.2 g/dL (3.5-5.0)
[2017-05-23 08:37] LABS: CALCIUM 8.6 mg/dl (8.6-10.4)
[2017-05-23 08:38] LABS: MAGNESIUM 2.4 mg/dL (1.6-2.3)
[2017-05-23 08:41] LABS: ALB/GLOB RATIO 0.8 (1.0-2.1)
[2017-05-23 09:27] LABS: LYMPHOCYTE 5 % (20-40); MONOCYTE 2 % (0-10); NEUTROPHIL 93 % (50-75); TOTAL CELLS COUNTED 100
[2017-05-23 09:28] LABS: PLATELET ESTIMATE NORMAL (NORMAL)
--- NOTE | 2017-05-23 14:52 | RAD ---
HISTORY: evaluation COMPARISON: 05/21/2017 FINDINGS: LUNGS: There is interval improved aeration in the left lower lobe. There is patchy airspace disease in the right upper lobe. There is mild pulmonary venous congestion. PLEURA: There is a small left pleural effusion. No significant right pleural effusion identified, no pneumothorax apparent. CARDIOVASCULAR: Normal. OSSEOUS STRUCTURES: Multilevel degenerative changes. VISUALIZED UPPER ABDOMEN: Normal. OTHER FINDINGS: None. IMPRESSION: Improving left lower lobe pneumonia. Persistent small left pleural effusion. Suspect right upper lobe pneumonia. Follow-up after medical management is advised to ensure complete resolution.
--- NOTE | 2017-05-23 17:29 | CP.PCM.PN ---
Subjective - Date & Time of Evaluation Date of Evaluation: 05/23/17 Time of Evaluation: 08:45 - Subjective Subjective: PGY2 Medicine Note - Dr. Hoyos's Service: Patient seen and examined this AM. Resting comfortably, no overnight events per nursing. Tolerating diet. Reports improving dyspnea with medication and oxyen. Denies fevers, chills, dizziness, sore throat, palpitations, abdominal pain, diarrhea, constipation, dysuria, or any additional acute complaints. Objective - Vital Signs/Intake and Output Vital Signs (last 24 hours): Temp Pulse Resp BP Pulse Ox 98.1 F 58 L 20 122/77 99 05/23/17 15:00 05/23/17 15:00 05/23/17 15:00 05/23/17 15:00 05/23/17 15:00 Intake and Output: 05/23/17 05/23/17 06:59 18:59 Intake Total 820 500 Balance 820 500 - Medications Medications: Current Medications Famotidine (Pepcid) 20 mg PO DAILY [facility] Last Admin: 05/23/17 09:19 Dose: 20 mg Heparin Sodium (Porcine) (Heparin) 5,000 units SC Q8 [facility] Last Admin: 05/23/17 13:20 Dose: 5,000 units Hydrochlorothiazide (Microzide) 12.5 mg PO DAILY [facility] Last Admin: 05/23/17 09:19 Dose: 12.5 mg Ceftriaxone Sodium 1 gm/ (Sodium Chloride) 100 mls @ 100 mls/hr IVPB Q12H [facility] Last Admin: 05/23/17 17:13 Dose: 100 mls/hr Azithromycin (Zithromax 500mg In Ns Addvantage) 500 mg in 250 mls @ 167 mls/hr IVPB Q24H [facility] Last Admin: 05/22/17 21:07 Dose: 167 mls/hr Insulin Human Regular (Novolin R) 0 unit SC ACHS [facility] PRN Reason: Protocol Last Admin: 05/23/17 17:14 Dose: 1 unit Losartan Potassium (Cozaar) 100 mg PO DAILY [facility] Last Admin: 05/23/17 09:19 Dose: 100 mg Montelukast Sodium (Singulair) 10 mg PO HS [facility] Last Admin: 05/22/17 21:07 Dose: 10 mg Fluticasone/Salmeterol (Advair Diskus 250/50) 1 puff INH RQ12 [facility] Last Admin: 05/23/17 08:00 Dose: 1 puff - Labs Labs: 05/23/17 07:17 05/23/17 07:17 - Additional Findings Additional findings: - Constitutional Appears: No Acute Distress - Head Exam Head Exam: NORMAL INSPECTION, NORMOCEPHALIC - Eye Exam Eye Exam: EOMI, Normal appearance - ENT Exam ENT Exam: Mucous Membranes Moist - Neck Exam Neck exam: Positive for: Full Rom, Normal Inspection - Respiratory Exam Respiratory Exam: Rhonchi, Wheezes. absent: Clear to Auscultation Bilateral, NORMAL BREATHING PATTERN - Cardiovascular Exam Cardiovascular Exam: REGULAR RHYTHM, +S1, +S2 - GI/Abdominal Exam GI & Abdominal Exam: Normal Bowel Sounds, Soft. absent: Tenderness - Extremities Exam Extremities exam: Positive for: normal inspection, pedal edema - Neurological Exam Neurological exam: Alert, Oriented x3 - Psychiatric Exam Psychiatric exam: Normal Affect, Normal Mood - Skin Skin Exam: Dry, Intact, Normal Color, Warm Assessment and Plan - Assessment and Plan (Free Text) Assessment: (1) Pneumonia Assessment and Plan: 05/23: WBC 24 today, Sputum negative, BC-venous negative. Procalcitonin 0.83 H. repeat CXR - improving LLL pneumonia. persistent L pleural effusion. see full report. WBC: 25.9, Bands 4 Rocephin 1g IV Q12H Azithromycin 500mg IV CXR:exam limited to body habitus; left pleural effusion; cannot exclude left basilar infiltrate Chest CT:consolidation posterior segment right upper lobe; patchy opacities in left lower lobe and in superior right upper lobe; likely multifocal pneumonia; probable focal atelectasis medial right lower lobe; no pleural effusion; mild mediastinal lymphadenopathy. Status: Acute (2) Dyspnea Assessment and Plan: 05/23: ROMIs - negative x3. EKG nsr, LAD, possible anterior infarct age undetermined. see EMR. likely secondary to pneumonia Nasal Canual 2L PRN Advair 250/50 daily CXR:exam limited to body habitus; left pleural effusion; cannot exclude left basilar infiltrate Chest CT:consolidation posterior segment right upper lobe; patchy opacities in left lower lobe and in superior right upper lobe; likely multifocal pneumonia; probable focal atelectasis medial right lower lobe; no pleural effusion; mild mediastinal lymphadenopathy. Status: Acute (3) HTN (hypertension) Assessment and Plan: 05/23: 127/61, monitor. Hold Demedex 10mg PO daily, Hold Losartan 100mg PO daily. Monitor BP Hydrochlorothiazide 12.5mg PO daily Heart Healthy Diet, 2Na Status: Acute (4) Diabetes mellitus Assessment and Plan: Monitor HgbA1c -7.9. Novolin R ISS Accuchecks QACHS Heart Healthy Diet, 2Na Status: Acute (5) Asthma Assessment and Plan: Nasal Canula 2L PRN Singulair 10mg PO HS Advair 250/50 [facility] daily Status: Acute (6) Prophylactic measure Assessment and Plan: Heparin 5,000 units SC Q8 SCDs Heart Healthy Diet, 2Na Pepcid 20mg PO once daily
[2017-05-23] MEDS: Azithromycin 500mg/250ML NS 500 MG/250 ML BAG IVPB SCH (21:38)
[2017-05-24] MEDS: Fluticasone-Salmeterol 250-50mcg Diskus INH SCH ×2 (07:35→19:26)
[2017-05-24 07:54] LABS: ALBUMIN 3.3 g/dL (3.5-5.0)
[2017-05-24 07:57] LABS: ALB/GLOB RATIO 0.9 (1.0-2.1)
[2017-05-24 07:58] LABS: CALCIUM 8.9 mg/dl (8.6-10.4); MAGNESIUM 2.3 mg/dL (1.6-2.3)
[2017-05-24] MEDS: (Novolin R) Insulin Human Regular 100 units/ml vial SC SCH ×3 (08:09→16:30)
--- NOTE | 2017-05-24 11:04 | CP.PCM.PN ---
<Rossana Escudero - Last Filed: 05/24/17 19:20> Subjective - Date & Time of Evaluation Date of Evaluation: 05/24/17 Time of Evaluation: 08:00 - Subjective Subjective: PGY1 Medicine Note - Dr. Holland's Service: Patient seen and examined this morning and in no acute distress. Patient resting comfortably and reports improving dyspnea with medication and oxygen. Patient coughing up a lot of white/ yellow phlegm. Denies chest pain, palpitations, abdominal pain, diarrhea, constipation, nausea, or vomiting. Patient is a hard stick. Objective - Vital Signs/Intake and Output Vital Signs (last 24 hours): Temp Pulse Resp BP Pulse Ox 97.6 F 64 20 140/78 98 05/24/17 08:27 05/24/17 08:27 05/24/17 08:27 05/24/17 08:27 05/24/17 08:27 Intake and Output: 05/24/17 05/24/17 06:59 18:59 Intake Total 1200 Balance 1200 - Medications Medications: Current Medications Famotidine (Pepcid) 20 mg PO DAILY [facility] Last Admin: 05/24/17 09:23 Dose: 20 mg Heparin Sodium (Porcine) (Heparin) 5,000 units SC Q8 [facility] Last Admin: 05/24/17 05:39 Dose: 5,000 units Hydrochlorothiazide (Microzide) 12.5 mg PO DAILY [facility] Last Admin: 05/24/17 09:23 Dose: 12.5 mg Ceftriaxone Sodium 1 gm/ (Sodium Chloride) 100 mls @ 100 mls/hr IVPB Q12H [facility] Last Admin: 05/24/17 05:38 Dose: 100 mls/hr Azithromycin (Zithromax 500mg In Ns Addvantage) 500 mg in 250 mls @ 167 mls/hr IVPB Q24H [facility] Last Admin: 05/23/17 21:38 Dose: 167 mls/hr Insulin Human Regular (Novolin R) 0 unit SC ACHS [facility] PRN Reason: Protocol Last Admin: 05/24/17 08:09 Dose: Not Given Losartan Potassium (Cozaar) 100 mg PO DAILY [facility] Last Admin: 05/23/17 09:19 Dose: 100 mg Montelukast Sodium (Singulair) 10 mg PO HS [facility] Last Admin: 05/23/17 21:38 Dose: 10 mg Fluticasone/Salmeterol (Advair Diskus 250/50) 1 puff INH RQ12 [facility] Last Admin: 05/24/17 07:35 Dose: 1 puff - Labs Labs: 05/23/17 07:17 05/24/17 07:19 - Constitutional Appears: Well, Non-toxic, No Acute Distress - Head Exam Head Exam: ATRAUMATIC - Eye Exam Eye Exam: EOMI, Normal appearance, PERRL - ENT Exam ENT Exam: Mucous Membranes Moist, Normal Exam - Neck Exam Neck Exam: Full ROM, Normal Inspection. absent: Lymphadenopathy - Respiratory Exam Respiratory Exam: Rhonchi, Wheezes, NORMAL BREATHING PATTERN. absent: Clear to Ausculation Bilateral Additional comments: mild expiratory wheezes - Cardiovascular Exam Cardiovascular Exam: REGULAR RHYTHM, RRR, +S1, +S2. absent: Gallop, JVD, Rubs, Murmur - GI/Abdominal Exam GI & Abdominal Exam: Soft, Normal Bowel Sounds. absent: Distended, Firm, Rigid , Tenderness - Extremities Exam Extremities Exam: Full ROM, Normal Capillary Refill, Normal Inspection. absent : Joint Swelling, Pedal Edema - Back Exam Back Exam: NORMAL INSPECTION - Neurological Exam Neurological Exam: Alert, Awake, Oriented x3 - Psychiatric Exam Psychiatric exam: Normal Affect, Normal Mood - Skin Skin Exam: Intact, Normal Color, Warm Assessment and Plan - Assessment and Plan (Free Text) Assessment: (1) Pneumonia Assessment and Plan: 05/24: Patient is a hard stick. Unable to get cbc in am. To try again in pm. 05/23: WBC 24 today, Sputum negative, BC-venous negative. Procalcitonin 0.83 H. repeat CXR - improving LLL pneumonia. persistent L pleural effusion. see full report. WBC: 25.9, Bands 4 Rocephin 1g IV Q12H Azithromycin 500mg IV CXR:exam limited to body habitus; left pleural effusion; cannot exclude left basilar infiltrate Chest CT:consolidation posterior segment right upper lobe; patchy opacities in left lower lobe and in superior right upper lobe; likely multifocal pneumonia; probable focal atelectasis medial right lower lobe; no pleural effusion; mild mediastinal lymphadenopathy. Status: Acute (2) Dyspnea Assessment and Plan: 05/23: ROMIs - negative x3. EKG nsr, LAD, possible anterior infarct age undetermined. see EMR. likely secondary to pneumonia Nasal Canual 2L PRN Advair 250/50 daily CXR:exam limited to body habitus; left pleural effusion; cannot exclude left basilar infiltrate Chest CT:consolidation posterior segment right upper lobe; patchy opacities in left lower lobe and in superior right upper lobe; likely multifocal pneumonia; probable focal atelectasis medial right lower lobe; no pleural effusion; mild mediastinal lymphadenopathy. Status: Acute (3) HTN (hypertension) Assessment and Plan: 05/23: 127/61, monitor. Hold Demedex 10mg PO daily, Hold Losartan 100mg PO daily. Monitor BP Hydrochlorothiazide 12.5mg PO daily Heart Healthy Diet, 2Na Status: Acute (4) Diabetes mellitus Assessment and Plan: Monitor HgbA1c -7.9. Novolin R ISS Accuchecks QACHS Heart Healthy Diet, 2Na Status: Acute (5) Asthma Assessment and Plan: Nasal Canula 2L PRN Singulair 10mg PO HS Advair 250/50 [facility] daily Status: Acute (6) Prophylactic measure Assessment and Plan: Heparin 5,000 units SC Q8 SCDs Heart Healthy Diet, 2Na Pepcid 20mg PO once daily <Lucio Holland - Last Filed: 05/25/17 10:00> Objective - Vital Signs/Intake and Output Vital Signs (last 24 hours): Temp Pulse Resp BP Pulse Ox 98.2 F 85 20 154/82 H 96 05/25/17 08:47 05/25/17 08:47 05/25/17 08:47 05/25/17 08:47 05/25/17 08:47 Intake and Output: 05/25/17 05/25/17 06:59 18:59 Intake Total 400 Balance 400 - Medications Medications: Current Medications Famotidine (Pepcid) 20 mg PO DAILY [facility] Last Admin: 05/24/17 09:23 Dose: 20 mg Heparin Sodium (Porcine) (Heparin) 5,000 units SC Q8 [facility] Last Admin: 05/25/17 05:30 Dose: 5,000 units Hydrochlorothiazide (Microzide) 12.5 mg PO DAILY [facility] Last Admin: 05/24/17 09:23 Dose: 12.5 mg Ceftriaxone Sodium 1 gm/ (Sodium Chloride) 100 mls @ 100 mls/hr IVPB Q12H [facility] Last Admin: 05/25/17 04:50 Dose: 100 mls/hr Azithromycin (Zithromax 500mg In Ns Addvantage) 500 mg in 250 mls @ 167 mls/hr IVPB Q24H [facility] Last Admin: 05/24/17 21:48 Dose: 167 mls/hr Insulin Human Regular (Novolin R) 0 unit SC ACHS [facility] PRN Reason: Protocol Last Admin: 05/25/17 08:19 Dose: 2 unit Losartan Potassium (Cozaar) 100 mg PO DAILY [facility] Last Admin: 05/23/17 09:19 Dose: 100 mg Montelukast Sodium (Singulair) 10 mg PO HS [facility] Last Admin: 05/24/17 22:45 Dose: 10 mg Fluticasone/Salmeterol (Advair Diskus 250/50) 1 puff INH RQ12 [facility] Last Admin: 05/24/17 19:26 Dose: 1 puff - Labs Labs: 05/25/17 07:09 05/25/17 07:09 Attending/Attestation - Attestation I have personally seen and examined this patient.: Yes I have fully participated in the care of the patient.: Yes I have reviewed all pertinent clinical information, including history, physical exam and plan: Yes Notes (Text): 05/25/17 10:00 Patient was seen and examined at bedside with the resident Still complaining of cough and expectoration Continue current management with IV antibiotics Discussed the plan of care with the resident and agree with the patient and assessment/plan.
--- NOTE | 2017-05-24 14:07 | CARD ---
APPROVED REPORT EKG Measurement Heart [id number] AR [id number] [id number] <Conclusion> Normal sinus rhythm Left axis deviation Inferior infarct, age undetermined Possible Anterior infarct, age undetermined Abnormal ECG
[2017-05-24] MEDS: Azithromycin 500mg/250ML NS 500 MG/250 ML BAG IVPB SCH (21:48)
--- NOTE | 2017-05-25 00:52 | CP.PCM.PN ---
<Madison Littlejohn - Last Filed: 05/25/17 00:50> Subjective - Date & Time of Evaluation Date of Evaluation: 05/25/17 Time of Evaluation: 00:51 - Subjective Subjective: Medicine Note For Dr. Holland, Patient was seen and examined at bedside. Resting comfortably in bed. No acute complaints. Denied fever, chills, chest pain, SOB, abdominal pain, n/v/d/c, or urinary symptoms. Objective - Vital Signs/Intake and Output Vital Signs (last 24 hours): Temp Pulse Resp BP Pulse Ox 98.6 F 74 20 138/68 95 05/25/17 00:00 05/25/17 00:00 05/25/17 00:00 05/25/17 00:00 05/25/17 00:00 Intake and Output: 05/24/17 05/25/17 18:59 06:59 Intake Total 500 Balance 500 - Medications Medications: Current Medications Famotidine (Pepcid) 20 mg PO DAILY [facility] Last Admin: 05/24/17 09:23 Dose: 20 mg Heparin Sodium (Porcine) (Heparin) 5,000 units SC Q8 [facility] Last Admin: 05/24/17 21:47 Dose: 5,000 units Hydrochlorothiazide (Microzide) 12.5 mg PO DAILY [facility] Last Admin: 05/24/17 09:23 Dose: 12.5 mg Ceftriaxone Sodium 1 gm/ (Sodium Chloride) 100 mls @ 100 mls/hr IVPB Q12H [facility] Last Admin: 05/24/17 17:31 Dose: 100 mls/hr Azithromycin (Zithromax 500mg In Ns Addvantage) 500 mg in 250 mls @ 167 mls/hr IVPB Q24H [facility] Last Admin: 05/24/17 21:48 Dose: 167 mls/hr Insulin Human Regular (Novolin R) 0 unit SC ACHS [facility] PRN Reason: Protocol Last Admin: 05/24/17 16:30 Dose: 2 unit Losartan Potassium (Cozaar) 100 mg PO DAILY [facility] Last Admin: 05/23/17 09:19 Dose: 100 mg Montelukast Sodium (Singulair) 10 mg PO HS [facility] Last Admin: 05/24/17 22:45 Dose: 10 mg Fluticasone/Salmeterol (Advair Diskus 250/50) 1 puff INH RQ12 [facility] Last Admin: 05/24/17 19:26 Dose: 1 puff - Labs Labs: 05/23/17 07:17 05/24/17 07:19 - Constitutional Appears: No Acute Distress - Head Exam Head Exam: NORMAL INSPECTION, NORMOCEPHALIC - Respiratory Exam Respiratory Exam: NORMAL BREATHING PATTERN - Cardiovascular Exam Cardiovascular Exam: REGULAR RHYTHM - GI/Abdominal Exam GI & Abdominal Exam: Soft, Normal Bowel Sounds. absent: Distended, Tenderness - Extremities Exam Extremities Exam: Normal Inspection. absent: Pedal Edema, Tenderness - Neurological Exam Neurological Exam: Alert, Awake, Oriented x3 - Psychiatric Exam Psychiatric exam: Normal Affect, Normal Mood - Skin Skin Exam: Dry, Intact, Normal Color, Warm Assessment and Plan - Assessment and Plan (Free Text) Plan: (1) Pneumonia Assessment and Plan: 05/24: Patient is a hard stick. Unable to get cbc in am. To try again in pm. 05/23: WBC 24 today, Sputum negative, BC-venous negative. Procalcitonin 0.83 H. repeat CXR - improving LLL pneumonia. persistent L pleural effusion. see full report. WBC: 25.9, Bands 4 Rocephin 1g IV Q12H Azithromycin 500mg IV CXR:exam limited to body habitus; left pleural effusion; cannot exclude left basilar infiltrate Chest CT:consolidation posterior segment right upper lobe; patchy opacities in left lower lobe and in superior right upper lobe; likely multifocal pneumonia; probable focal atelectasis medial right lower lobe; no pleural effusion; mild mediastinal lymphadenopathy. Status: Acute (2) Dyspnea Assessment and Plan: 05/23: ROMIs - negative x3. EKG nsr, LAD, possible anterior infarct age undetermined. see EMR. likely secondary to pneumonia Nasal Canual 2L PRN Advair 250/50 daily CXR:exam limited to body habitus; left pleural effusion; cannot exclude left basilar infiltrate Chest CT:consolidation posterior segment right upper lobe; patchy opacities in left lower lobe and in superior right upper lobe; likely multifocal pneumonia; probable focal atelectasis medial right lower lobe; no pleural effusion; mild mediastinal lymphadenopathy. Status: Acute (3) HTN (hypertension) Assessment and Plan: 05/23: 127/61, monitor. Hold Demedex 10mg PO daily, Hold Losartan 100mg PO daily. Monitor BP Hydrochlorothiazide 12.5mg PO daily Heart Healthy Diet, 2Na Status: Acute (4) Diabetes mellitus Assessment and Plan: Monitor HgbA1c -7.9. Novolin R ISS Accuchecks QACHS Heart Healthy Diet, 2Na Status: Acute (5) Asthma Assessment and Plan: Nasal Canula 2L PRN Singulair 10mg PO HS Advair 250/50 I[facility] daily Status: Acute (6) Prophylactic measure Assessment and Plan: Heparin 5,000 units SC Q8 SCD[facility] Heart Healthy Diet, 2Na Pepcid 20mg PO once daily <Lucio Holland - Last Filed: 05/26/17 17:31> Objective - Vital Signs/Intake and Output Vital Signs (last 24 hours): Temp Pulse Resp BP Pulse Ox 98.2 F 85 20 154/82 H 96 05/25/17 08:47 05/25/17 08:47 05/25/17 08:47 05/25/17 08:47 05/25/17 08:47 - Labs Labs: 05/25/17 07:09 05/25/17 07:09 Attending/Attestation - Attestation I have personally seen and examined this patient.: Yes I have fully participated in the care of the patient.: Yes Notes (Text): 05/26/17 17:31 Patient was seen and examined at bedside with the resident She is feeling much better and she wants to be discharged I will discharge the patient on oral antibiotics I agree with the assessment and plan by the resident.
[2017-05-25 07:17] LABS: BASO # 0.1 K/uL (0.0-0.2); BASO % 0.7 % (0.0-2.0); EOS # 0.4 K/uL (0.0-0.7); LYMPH # 2.3 K/uL (1.0-4.3); LYMPH % 22.5 % (20.0-40.0); MEAN CORPUSCULAR HEMOGLOBIN 28.3 pg (27.0-31.0); MEAN CORPUSCULAR HGB CONC 31.8 g/dL (33.0-37.0); MEAN PLATELET VOLUME 8.8 fL (7.2-11.7); MONO # 0.5 K/uL (0.0-0.8); MONO % 4.8 % (0.0-10.0); NEUT # 6.9 K/uL (1.8-7.0); RBC 4.26 Mil/uL (3.80-5.20); RED CELL DISTRIBUTION WIDTH 14.8 % (11.5-14.5)
[2017-05-25 07:27] LABS: HEMOGLOBIN 12.1 g/dL (11.0-16.0); WHITE BLOOD COUNT 10.2 K/uL (4.8-10.8)
[2017-05-25 07:53] LABS: ALBUMIN 3.6 g/dL (3.5-5.0)
[2017-05-25 07:56] LABS: CALCIUM 9.7 mg/dl (8.6-10.4)
[2017-05-25 07:57] LABS: MAGNESIUM 2.3 mg/dL (1.6-2.3)
[2017-05-25] MEDS: Fluticasone-Salmeterol 250-50mcg Diskus INH SCH (08:00)
[2017-05-25 08:09] LABS: ALB/GLOB RATIO 0.9 (1.0-2.1)
[2017-05-25] MEDS: (Novolin R) Insulin Human Regular 100 units/ml vial SC SCH ×2 (08:19→12:03)
[2017-05-25 08:48] VITALS: BP 154/82; PULSE 85; TEMP 98.2; O2SAT 96
--- NOTE | 2017-05-25 21:22 | CP.PCM.DIS ---
<Sonya Seth - Last Filed: 05/25/17 21:14> Provider - Provider Date of Admission: 05/21/17 16:51 Attending physician: Kalin Hoyos DO Primary care physician: Dr. Alexander Time Spent in preparation of Discharge (in minutes): 45 Diagnosis - Discharge Diagnosis (1) Pneumonia Status: Resolved Comment: See hospital summary for more details. (2) Dyspnea Status: Resolved Comment: See hospital summary for more details. (3) HTN (hypertension) Status: Chronic Comment: See hospital summary for more details. (4) Diabetes mellitus Status: Chronic Comment: See hospital summary for more details. (5) Asthma Status: Chronic Comment: See hospital summary for more details. Hospital Course - Lab Results Lab Results: Micro Results 05/21/17 17:10 Blood-Venous Blood Culture - Preliminary NO GROWTH AFTER 3 DAYS 05/21/17 22:00 Sputum Gram Stain - Final 05/21/17 22:00 Sputum Sputum Culture - Final NORMAL ORAL ARASH Most Recent Lab Values WBC 10.2 K/uL (4.8-10.8) D 05/25/17 07:09 RBC 4.26 Mil/uL (3.80-5.20) 05/25/17 07:09 Hgb 12.1 g/dL (11.0-16.0) D 05/25/17 07:09 Hct 37.9 % (34.0-47.0) 05/25/17 07:09 MCV 89.0 fL (81.0-99.0) 05/25/17 07:09 MCH 28.3 pg (27.0-31.0) 05/25/17 07:09 MCHC 31.8 g/dL (33.0-37.0) L 05/25/17 07:09 RDW 14.8 % (11.5-14.5) H 05/25/17 07:09 Plt Count 289 K/uL (130-400) 05/25/17 07:09 MPV 8.8 fL (7.2-11.7) 05/25/17 07:09 Neut % (Auto) 68.0 % (50.0-75.0) 05/25/17 07:09 Lymph % (Auto) 22.5 % (20.0-40.0) 05/25/17 07:09 [facility] % (Auto) 4.8 % (0.0-10.0) 05/25/17 07:09 Eos % (Auto) 4.0 % (0.0-4.0) 05/25/17 07:09 Baso % (Auto) 0.7 % (0.0-2.0) 05/25/17 07:09 Neut # 6.9 K/uL (1.8-7.0) 05/25/17 07:09 Lymph # 2.3 K/uL (1.0-4.3) 05/25/17 07:09 [facility] # 0.5 K/uL (0.0-0.8) 05/25/17 07:09 Eos # 0.4 K/uL (0.0-0.7) 05/25/17 07:09 Baso # 0.1 K/uL (0.0-0.2) 05/25/17 07:09 Neutrophils % (Manual) 93 % (50-75) H 05/23/17 07:17 Band Neutrophils % 2 % (0-2) 05/22/17 05:50 Lymphocytes % (Manual) 5 % (20-40) L 05/23/17 07:17 Monocytes % (Manual) 2 % (0-10) 05/23/17 07:17 Platelet Estimate Normal (NORMAL) 05/23/17 07:17 RBC Morphology Normal 05/23/17 07:17 Hypochromasia (manual) Slight 05/22/17 05:50 Anisocytosis (manual) Slight 05/22/17 05:50 Sodium 142 mmol/L (132-148) 05/25/17 07:09 Potassium 4.3 mmol/L (3.6-5.2) 05/25/17 07:09 Chloride 103 mmol/L (98-107) 05/25/17 07:09 Carbon Dioxide 30 mmol/L (22-30) 05/25/17 07:09 Anion Gap 13 (10-20) 05/25/17 07:09 BUN 35 mg/dL (7-17) H 05/25/17 07:09 Creatinine 1.2 MG/DL (0.7-1.2) 05/25/17 07:09 Est GFR ( Amer) 53 05/25/17 07:09 Est GFR (Non-Af Amer) 44 05/25/17 07:09 POC Glucose (mg/dL) 151 mg/dL (65-110) H 05/25/17 11:47 Random Glucose 152 mg/dL (65-105) H 05/25/17 07:09 Hemoglobin A1c 7.9 % (4.2-6.5) H 05/22/17 05:50 Calcium 9.7 mg/dl (8.6-10.4) 05/25/17 07:09 Phosphorus 3.0 mg/dL (2.5-4.5) 05/25/17 07:09 Magnesium 2.3 mg/dL (1.6-2.3) 05/25/17 07:09 Total Bilirubin 0.5 mg/dL (0.2-1.3) 05/25/17 07:09 AST 19 U/L (14-36) 05/25/17 07:09 ALT 21 U/L (9-52) 05/25/17 07:09 Alkaline Phosphatase 124 U/L (38-126) 05/25/17 07:09 Troponin I < 0.0120 ng/mL (0.00-0.120) 05/22/17 05:50 NT-Pro-B Natriuret Pep 604 pg/mL (0-900) 05/21/17 15:56 Total Protein 7.8 g/dL (6.3-8.3) 05/25/17 07:09 Albumin 3.6 g/dL (3.5-5.0) 05/25/17 07:09 Globulin 4.2 gm/dL (2.2-3.9) H 05/25/17 07:09 Albumin/Globulin Ratio 0.9 (1.0-2.1) L 05/25/17 07:09 Procalcitonin 0.31 NG/ML (0.19-0.49) 05/23/17 21:16 - Hospital Course Hospital Course: CC: shortness of breath, body aches and cough HPI: 77 year old female with past medical history of diabetes, asthma, and hypertension, presents to the ED with shortness of breath, cough, and fevers. She reports this started 4 days ago. She has a productive cough with white sputum. She has tried taking Tylenol and Advil 500mg which helped a little. Patient reports having body aches. The patients symptoms are diaphoresis, weakness, headaches (yesterday), chest pain with cough, and nausea (yesterday). Patient currently denies fevers, chills, dizziness, sore throat, palpitations, abdominal pain, hematemesis, diarrhea, constipation, dysuria, recent travel, and recent sick contacts. Patient was admitted for shortness of breath and pneumonia. In the ED, EKG showed normal sinus rhythm and ROMIs were negative times three. Chest xray showed left pleural effusion and couldn't exclude left bibasilar infiltrate; limited due to body habitus. CT of the chest showed consolidation posterior segment right upper lobe; patchy opacities in left lower lobe and in superior right upper lobe; likely multifocal pneumonia; probable focal atelectasis medial right lower lobe; no pleural effusion; mild mediastinal lymphadenopathy. Patient was started on antibiotics. Sputum cultures and blood cultures were negative. Repeat chest xray showed improving left lower lobe pneumonia, persistent left pleural effusion. Patient is stable for discharge to home as per Dr. Holland. Patient is stable for discharge home as per Dr. Holland. Patient is to continue home medications, and start new medications listed below. Tylenol 500mg PO Q6 as needed Budesonide/Fomoterol Fumarate 1 inhalation daily Losartan/Hydrochlorothiazide 1 tablet daily Mobic 15mg, 1 tablet daily Metformin 500mg by mouth at night Singulair 10mg, 1 tablet by mouth at night Demadex 10mg by mouth daily Levaquin 500mg, take 1 tablet daily (new medication) Albuterol 0.5% inhalation Q6 as needed (new medication) Patient should follow up with PMD, Dr. Alexander, within one week of discharge. These instructions have been discussed and understood by the patient. Patient should return is symptoms reoccur. Discharge Exam - Head Exam Head Exam: NORMAL INSPECTION, NORMOCEPHALIC - Eye Exam Eye Exam: EOMI, Normal appearance - ENT Exam ENT Exam: Mucous Membranes Moist - Neck Exam Neck exam: Normal Inspection - Respiratory Exam Respiratory Exam: NORMAL BREATHING PATTERN, UNREMARKABLE - Cardiovascular Exam Cardiovascular Exam: REGULAR RHYTHM, +S1, +S2 - GI/Abdominal Exam GI & Abdominal Exam: Normal Bowel Sounds, Unremarkable - Extremities Exam Extremities exam: normal inspection - Neurological Exam Neurological exam: Alert, Oriented x3 - Psychiatric Exam Psychiatric exam: Normal Affect, Normal Mood - Skin Skin Exam: Dry, Intact, Normal Color, Warm Discharge Plan - Discharge Medications Prescriptions: Albuterol 0.5% [Albuterol 0.5% Inhal Reanna (2.5 mg/0.5 ml) UD] 0.5 ml IH Q6H PRN # 120 neb PRN Reason: Wheezing Levofloxacin [Levaquin] 500 mg PO DAILY #5 tablet - Follow Up Plan Condition: STABLE Disposition: HOME/ ROUTINE Instructions: Acetaminophen (By mouth), Albuterol (By breathing), Metformin ( By mouth), Levofloxacin (By mouth), Torsemide (By mouth), Budesonide (By breathing), Losartan/Hydrochlorothiazide (By mouth), Montelukast (By mouth), Meloxicam (By mouth), Viral Pneumonia (DC), Diabetes Mellitus Type 2 in Adults ( DC), COPD (Chronic Obstructive Pulmonary Disease) (DC), COPD (Chronic Obstructive Pulmonary Disease) (GEN), Chronic Hypertension (DC), Pneumonia (DC) , Pneumonia (GEN) Additional Instructions: Patient is stable for discharge home as per Dr. Holland. Patient is to continue home medications, and start new medications listed below. Tylenol 500mg PO Q6 as needed Budesonide/Fomoterol Fumarate 1 inhalation daily Losartan/Hydrochlorothiazide 1 tablet daily Mobic 15mg, 1 tablet daily Metformin 500mg by mouth at night Singulair 10mg, 1 tablet by mouth at night Demadex 10mg by mouth daily Levaquin 500mg, take 1 tablet daily (new medication) Albuterol 0.5% inhalation Q6 as needed (new medication) Patient should follow up with PMD, Dr. Alexander, within one week of discharge. These instructions have been discussed and understood by the patient. Patient should return is symptoms reoccur. <Lucio Holland - Last Filed: 05/26/17 17:32> Provider - Provider Date of Admission: 05/21/17 16:51 Attending physician: Kalin Hoyos DO Hospital Course - Lab Results Lab Results: Micro Results 05/21/17 17:10 Blood-Venous Blood Culture - Preliminary NO GROWTH AFTER 4 DAYS 05/21/17 22:00 Sputum Gram Stain - Final 05/21/17 22:00 Sputum Sputum Culture - Final NORMAL ORAL ARASH Most Recent Lab Values WBC 10.2 K/uL (4.8-10.8) D 05/25/17 07:09 RBC 4.26 Mil/uL (3.80-5.20) 05/25/17 07:09 Hgb 12.1 g/dL (11.0-16.0) D 05/25/17 07:09 Hct 37.9 % (34.0-47.0) 05/25/17 07:09 MCV 89.0 fL (81.0-99.0) 05/25/17 07:09 MCH 28.3 pg (27.0-31.0) 05/25/17 07:09 MCHC 31.8 g/dL (33.0-37.0) L 05/25/17 07:09 RDW 14.8 % (11.5-14.5) H 05/25/17 07:09 Plt Count 289 K/uL (130-400) 05/25/17 07:09 MPV 8.8 fL (7.2-11.7) 05/25/17 07:09 Neut % (Auto) 68.0 % (50.0-75.0) 05/25/17 07:09 Lymph % (Auto) 22.5 % (20.0-40.0) 05/25/17 07:09 [facility] % (Auto) 4.8 % (0.0-10.0) 05/25/17 07:09 Eos % (Auto) 4.0 % (0.0-4.0) 05/25/17 07:09 Baso % (Auto) 0.7 % (0.0-2.0) 05/25/17 07:09 Neut # 6.9 K/uL (1.8-7.0) 05/25/17 07:09 Lymph # 2.3 K/uL (1.0-4.3) 05/25/17 07:09 [facility] # 0.5 K/uL (0.0-0.8) 05/25/17 07:09 Eos # 0.4 K/uL (0.0-0.7) 05/25/17 07:09 Baso # 0.1 K/uL (0.0-0.2) 05/25/17 07:09 Neutrophils % (Manual) 93 % (50-75) H 05/23/17 07:17 Band Neutrophils % 2 % (0-2) 05/22/17 05:50 Lymphocytes % (Manual) 5 % (20-40) L 05/23/17 07:17 Monocytes % (Manual) 2 % (0-10) 05/23/17 07:17 Platelet Estimate Normal (NORMAL) 05/23/17 07:17 RBC Morphology Normal 05/23/17 07:17 Hypochromasia (manual) Slight 05/22/17 05:50 Anisocytosis (manual) Slight 05/22/17 05:50 Sodium 142 mmol/L (132-148) 05/25/17 07:09 Potassium 4.3 mmol/L (3.6-5.2) 05/25/17 07:09 Chloride 103 mmol/L (98-107) 05/25/17 07:09 Carbon Dioxide 30 mmol/L (22-30) 05/25/17 07:09 Anion Gap 13 (10-20) 05/25/17 07:09 BUN 35 mg/dL (7-17) H 05/25/17 07:09 Creatinine 1.2 MG/DL (0.7-1.2) 05/25/17 07:09 Est GFR ( Amer) 53 05/25/17 07:09 Est GFR (Non-Af Amer) 44 05/25/17 07:09 POC Glucose (mg/dL) 151 mg/dL (65-110) H 05/25/17 11:47 Random Glucose 152 mg/dL (65-105) H 05/25/17 07:09 Hemoglobin A1c 7.9 % (4.2-6.5) H 05/22/17 05:50 Calcium 9.7 mg/dl (8.6-10.4) 05/25/17 07:09 Phosphorus 3.0 mg/dL (2.5-4.5) 05/25/17 07:09 Magnesium 2.3 mg/dL (1.6-2.3) 05/25/17 07:09 Total Bilirubin 0.5 mg/dL (0.2-1.3) 05/25/17 07:09 AST 19 U/L (14-36) 05/25/17 07:09 ALT 21 U/L (9-52) 05/25/17 07:09 Alkaline Phosphatase 124 U/L (38-126) 05/25/17 07:09 Troponin I < 0.0120 ng/mL (0.00-0.120) 05/22/17 05:50 NT-Pro-B Natriuret Pep 604 pg/mL (0-900) 05/21/17 15:56 Total Protein 7.8 g/dL (6.3-8.3) 05/25/17 07:09 Albumin 3.6 g/dL (3.5-5.0) 05/25/17 07:09 Globulin 4.2 gm/dL (2.2-3.9) H 05/25/17 07:09 Albumin/Globulin Ratio 0.9 (1.0-2.1) L 05/25/17 07:09 Procalcitonin 0.31 NG/ML (0.19-0.49) 05/23/17 21:16 Attending/Attestation - Attestation I have personally seen and examined this patient.: Yes I have fully participated in the care of the patient.: Yes I have reviewed all pertinent clinical information, including history, physical exam and plan: Yes Notes (Text): 05/26/17 17:32 Patient seen and examined at bedside with the resident Cleared for discharge to home on oral antibiotics Discussed the discharge plan with the patient and the family at bedside I agree with the discharge note by the resident.
== END 2017-05-25 03:05 | disposition home or self-care (01) | DRG 190 ==
LOC: C.ER 15:19 → C.9E 16:51 → C.3T 18:41
PROVIDERS: ADMIT Hospitalist; ATTEND Hospitalist
DX: J44.0 Chronic obstructive pulmonary disease with (acute) lower respiratory infection (principal); J18.9 Pneumonia, unspecified organism; J90 Pleural effusion, not elsewhere classified; J45.909 Unspecified asthma, uncomplicated; E11.9 Type 2 diabetes mellitus without complications; I10 Essential (primary) hypertension; Z79.4 Long term (current) use of insulin; J44.1 Chronic obstructive pulmonary disease with (acute) exacerbation

== ENCOUNTER 2017-10-13 11:00 | Emergency (ER) | payer MEDICARE, OTHER ==
--- NOTE | 2017-10-13 11:18 | C.PDOC ---
Time Seen by Provider: 10/13/17 11:03 Chief Complaint (Nursing): Shortness Of Breath Past Medical History Vital Signs: Last Vital Signs Temp 99.4 F 10/13/17 11:05 Pulse 88 10/13/17 11:05 Resp 20 10/13/17 11:05 BP 166/72 H 10/13/17 11:05 Pulse Ox 94 L 10/13/17 11:05 - Medical History PMH: Arthritis, Asthma, Diabetes, HTN Denies: Chronic Kidney Disease Family History: States: Unknown Family Hx - Social History Hx Tobacco Use: No Hx Alcohol Use: No Hx Substance Use: No - Immunization History Hx Tetanus Toxoid Vaccination: No Hx Influenza Vaccination: Yes Hx Pneumococcal Vaccination: No ED Course And Treatment O2 Sat by Pulse Oximetry: 94 Disposition - Disposition Forms: [facility] (Greek)
--- NOTE | 2017-10-13 11:21 | C.PDOC ---
History Of Present Illness 77 y/o female, with PMHx of asthma, diabetes, HTN, presents to ED c/o asthma flare for the past 4 days. Pt complains of productive cough, phlegm, and shortness of breath. Notes using her inhaler pump without significant relief. Denies chest pain, palpitations, headache, dizziness, fever, chills, or any other complaints. No history of smoking. Time Seen by Provider: 10/13/17 11:03 Chief Complaint (Nursing): Shortness Of Breath History Per: Patient History/Exam Limitations: no limitations Onset/Duration Of Symptoms: Days Current Symptoms Are (Timing): Still Present Exacerbating Factor(s): Coughing Current Respiratory Medications: See Home Med List Severity: None Pain Scale Rating Of: 0 Associated Symptoms: Productive Cough. denies: Fever, Chills, Sweating, Chest Pain, Bloody Cough, Heart Racing, Leg/Calf Pain, Ankle/Leg Swelling, Dizziness, Light-headedness, Anxiety, Tingling In Hands Or Face, Musle Spasms In Hands Or Feet Recent travel outside of the [place]: No Additional History Per: Patient Past Medical History Reviewed: Historical Data, Nursing Documentation, Vital Signs Vital Signs: Last Vital Signs Temp 99.4 F 10/13/17 11:05 Pulse 88 10/13/17 11:05 Resp 22 10/13/17 11:50 BP 166/72 H 10/13/17 11:05 Pulse Ox 94 L 10/13/17 13:45 - Medical History PMH: Arthritis, Asthma, Diabetes, HTN Denies: Chronic Kidney Disease Family History: States: Unknown Family Hx - Social History Hx Tobacco Use: No Hx Alcohol Use: No Hx Substance Use: No - Immunization History Hx Tetanus Toxoid Vaccination: No Hx Influenza Vaccination: Yes Hx Pneumococcal Vaccination: No Review Of Systems Except As Marked, All Systems Reviewed And Found Negative. Constitutional: Negative for: Fever, Chills Cardiovascular: Negative for: Chest Pain, Palpitations, Edema, Light Headedness Respiratory: Positive for: Cough, Shortness of Breath, Sputum. Negative for: Hemoptysis Gastrointestinal: Negative for: Nausea, Vomiting, Abdominal Pain Neurological: Negative for: Headache, Dizziness Physical Exam - Physical Exam Appears: Non-toxic, No Acute Distress Skin: Normal Color, Warm, Dry Head: Atraumatic, Normacephalic Eye(s): bilateral: Normal Inspection Oral Mucosa: Moist Neck: Supple Chest: Symmetrical Cardiovascular: Rhythm Regular, No Murmur Respiratory: No Accessory Muscle Use, No Rales, No Rhonchi, Wheezing (b/l) Gastrointestinal/Abdominal: Soft, No Tenderness Extremity: Normal ROM, No Pedal Edema Neurological/Psych: Oriented x3, Normal Speech, Normal Cognition ED Course And Treatment - Laboratory Results Result Diagrams: 10/13/17 12:45 10/13/17 12:45 O2 Sat by Pulse Oximetry: 94 Medical Decision Making Medical Decision Making: EKG, CXR ordered and reviewed. Patient was given nebulizer treatment. EKG: Normal sinus rhythm at 85 bpm. Left axis deviation. PACs. 130pm the pt reports feeling better. she appears well, in no distress, wheezing improved. she wishes to go home. disc results, plan for follow up and rtr. she v /u and agrees w plan. Disposition - Disposition Referrals: Familia Alexander MD [Staff Provider] - Disposition: HOME/ ROUTINE Disposition Time: 13:44 Condition: STABLE Additional Instructions: Please follow up with your doctor. Return to the ER for any worsening symptoms or for any other concerns. Prescriptions: Levofloxacin [Levaquin] 750 mg PO DAILY #5 tablet Prednisone 50 mg PO DAILY #4 tablet Promethazine [Phenergan Syrup] 6.25 mg PO Q12H PRN #100 ml PRN Reason: Cough Instructions: Community Acquired Pneumonia (ED) Forms: Gen Discharge Inst Bermudian, [facility] (Portuguese) Print Language: SINHALA - Clinical Impression Clinical Impression: Pneumonia - Scribe Statement The provider has reviewed the documentation as recorded by the Loretta Otto All medical record entries made by the Carmenibrukhsana were at my direction and personally dictated by me. I have reviewed the chart and agree that the record accurately reflects my personal performance of the history, physical exam, medical decision making, and the department course for this patient. I have also personally directed, reviewed, and agree with the discharge instructions and disposition.
[2017-10-13] MEDS ORDERED: Albuterol-Ipratrop 3 mg / 0.5 (3 ml) UD ONE ×3 (11:26→11:53)
[2017-10-13] MEDS: Albuterol-Ipratrop 3 mg / 0.5 (3 ml) UD IH SCH ×3 (11:30→12:41)
[2017-10-13] MEDS ORDERED: Moxifloxacin IV 400mg/250ml NS 400 MG/250 ML BAG IVPB ONE ×2 (12:10→12:50)
--- NOTE | 2017-10-13 12:53 | RAD ---
HISTORY: cough COMPARISON: Comparison is made to 05/23/2017 TECHNIQUE: Chest PA and lateral FINDINGS: LUNGS: No significant interval change in the lungs noted since the previous exam. PLEURA: Elevation of the left hemidiaphragm and blunting of the left costophrenic angle is again noted. CARDIOVASCULAR: Normal. OSSEOUS STRUCTURES: No significant abnormalities. VISUALIZED UPPER ABDOMEN: Normal. OTHER FINDINGS: None. IMPRESSION: No significant interval change in the lungs since the previous exam. The possibility of left lower lobe infiltrate or opacity is not totally excluded.
[2017-10-13 12:56] LABS: BASO # 0.1 K/uL (0.0-0.2); BASO % 0.4 % (0.0-2.0); EOS # 0.3 K/uL (0.0-0.7); EOS % 2.2 % (0.0-4.0); HEMATOCRIT 34.2 % (34.0-47.0); LYMPH # 2.6 K/uL (1.0-4.3); LYMPH % 19.3 % (20.0-40.0); MEAN CELL VOLUME 88.3 fL (81.0-99.0); MEAN CORPUSCULAR HEMOGLOBIN 28.6 pg (27.0-31.0); MEAN CORPUSCULAR HGB CONC 32.4 g/dL (33.0-37.0); MEAN PLATELET VOLUME 7.6 fL (7.2-11.7); MONO # 0.8 K/uL (0.0-0.8); MONO % 5.7 % (0.0-10.0); WHITE BLOOD COUNT 13.7 K/uL (4.8-10.8)
[2017-10-13 13:24] LABS: BILIRUBIN,TOTAL 0.7 mg/dL (0.2-1.3); CALCIUM 7.9 mg/dl (8.6-10.4); GFR AFRICAN-AMERICAN > 60; GLUCOSE,RANDOM 104 mg/dL (65-105)
[2017-10-13 13:28] LABS: ALB/GLOB RATIO 0.8 (1.0-2.1); ALKALINE PHOSPHATASE 68 U/L (38-126); ALT/SGPT 28 U/L (9-52); AST/SGOT 34 U/L (14-36); BLOOD UREA NITROGEN 22 mg/dL (7-17); CARBON DIOXIDE 21 mmol/L (22-30); CHLORIDE 104 mmol/L (98-107); POTASSIUM 4.2 mmol/L (3.6-5.2); SODIUM 137 mmol/L (132-148); TOTAL PROTEIN 7.9 g/dL (6.3-8.3)
[2017-10-13 14:21] VITALS: BP 143/72; PULSE 86; RESP 18; TEMP 98.8; O2SAT 96
== END 2017-10-13 14:00 | disposition home or self-care (01) ==
LOC: C.ER 11:00
DX: J18.9 Pneumonia, unspecified organism (principal)
CPT/HCPCS: 71020; 80053; 85025; 96365; 99284; J2280